=== PATIENT | female | born 1940 | race Caucasian/White ===

== ENCOUNTER 2023-03-26 07:58 | Outpatient (REF) | payer MEDICARE, SELFPAY ==
[2023-03-26 08:46] LABS: Basophils Absolute Auto 0.1 10^3/uL (0.0-0.1); Basophils Percent Auto 0.6 % (0.2-2.0); Eosinophils Absolute Auto 0.2 10^3/uL (0.0-0.7); Eosinophils Percent Auto 2.8 % (0.9-7.0); Hemoglobin 13.4 g/dL (12.0-16.0); Immature Granulocytes Abs Auto 0.04 10^3/uL (0.00-0.03); Immature Granulocytes Pct Auto 0.5 % (0.0-0.5); Lymphocytes Absolute Auto 1.2 10^3/uL (1.2-3.8); Lymphocytes Percent Auto 14.7 % (20.5-60.0); Mean Corpuscular HGB Conc 32.7 g/dL (29.9-35.2); Mean Corpuscular Volume 94.9 fL (81.0-99.0); Mean Platelet Volume 9.8 fL (9.5-13.5); Monocytes Absolute Auto 0.9 10^3/uL (0.3-0.8); Monocytes Percent Auto 10.7 % (1.7-12.0); Neutrophils Absolute Auto 5.8 10^3/uL (1.4-6.5); Neutrophils Percent Auto 70.7 % (43.0-75.0); Platelet Count 284 10^3/uL (150-450); Red Blood Count 4.32 10^6/uL (4.20-5.40); Red Cell Distribution Width 12.2 % (11.0-15.0); White Blood Count 8.2 10^3/uL (4.0-11.0)
[2023-03-26 09:16] LABS: Anion Gap 12.8; BUN Creatinine Ratio 11.7; Calcium 9.3 mg/dL (8.5-10.1); Carbon Dioxide 26.1 mmol/L (21.0-32.0); Chloride 104 mmol/L (98-107); Estimated GFR (African America >60 (>=60); Estimated GFR (Non-African Ame 57 (>=60); Glucose 82 mg/dL (74-106); Potassium 3.9 mmol/L (3.5-5.1); Sodium 139 mmol/L (136-145)
== END 2023-03-26 07:59 | disposition home or self-care (01) ==
LOC: LAB 07:58
PROVIDERS: PCP Internal Medicine; Visit Provider Internal Medicine
DX: I10 Essential (primary) hypertension (principal); F03.90 Unspecified dementia, unspecified severity, without behavioral disturbance, psychotic disturbance, mood disturbance, and anxiety
CPT/HCPCS: 36415; 80048; 85025

== ENCOUNTER 2023-07-30 19:12 | Inpatient (IN) | payer MEDICARE, OTHER, SELFPAY ==
[2023-07-30] VITALS (18 sets, daily range): BP systolic 140–182; BP diastolic 73–100; PULSE 75–92; RESP 16–99; TEMP 36.4–36.5; O2SAT 3–98; BMI 26.6; BMI 28.0
--- NOTE | 2023-07-30 19:23 | CT_ITS ---
The [address] [address] Patient Name: REYNALDO OLIVA MRN: [id number] date: 1940 Sex: F Assigned Patient Location: ER Current Patient Location: ER Accession/Order Number: [id number] Exam Date: 07/30/2023 20:05 Report Date: 07/30/2023 20:23 At the request of: CLAUDIA SOLIS Procedure: CT head/brain wo con EXAMINATION: CT head/brain wo con HISTORY: fall, head injury - TECHNIQUE: CT head without contrast. All CT scans at this facility use dose modulation, iterative reconstruction, and/or weight based dosing when appropriate to reduce radiation dose to as low as reasonably achievable. COMPARISON: CT head 09/18/2021 RESULT: HEAD: Sequelae of chronic microvascular ischemic disease. There is mild to moderate global parenchymal volume loss with compensatory dilatation of the lateral and third ventricles. No midline shift, extra-axial fluid collection or intracranial hemorrhage. Extra-axial posterior right parafalcine mass measuring 1.8 x 1.5 x 1.9 cm favoring a meningioma. Intracranial vascular calcifications are noted. Mastoids and middle ears are clear. The paranasal sinuses are clear. Orbits are intact. Status post bilateral lens replacements. Calvarium, skull base and osseous structures of the imaged face are intact. Scalp soft tissues are preserved. CT/CT head/brain wo con IMPRESSION: No acute intracranial process. Sequelae of chronic microvascular ischemic disease. Right posterior parafalcine extra-axial mass favoring a meningioma similar to prior. Electronically authenticated by: SONIA MACIAS Date: 07/30/2023 20:23
--- NOTE | 2023-07-30 19:23 | CT_ITS ---
The [address] [address] Patient Name: REYNALDO OLIVA MRN: [id number] date: 1940 Sex: F Assigned Patient Location: ER Current Patient Location: ER Accession/Order Number: [id number] Exam Date: 07/30/2023 20:05 Report Date: 07/30/2023 20:30 At the request of: CLAUDIA SOLIS Procedure: CT cervical spine wo con EXAM: CT cervical spine wo con HISTORY: fall, head injury COMPARISON: CT 09/18/2021 TECHNIQUE: CT cervical spine noncontrast. Axial scans with reformatted coronal and sagittal images. FINDINGS: Negative for fracture. No subluxation seen. Degenerative disc disease most prominent disc narrowing C4-5 with small osteophytes and posterior disc osteophyte complex unchanged.. Bony foraminal stenosis most prominent right C4-5 unchanged. Mild degenerative changes at other levels.. Prevertebral soft tissues unremarkable. Lung apices and upper mediastinum unremarkable. CT/CT cervical spine wo con IMPRESSION: Negative for fracture or subluxation. Degenerative disc and facet joint disease stable. Electronically authenticated by: TANISHA RIDER Date: 07/30/2023 20:30
--- NOTE | 2023-07-30 19:23 | ECG_ITS ---
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
--- NOTE | 2023-07-30 19:23 | XR_ITS ---
The [address] [address] Patient Name: REYNALDO OLIVA MRN: [id number] date: 1940 Sex: F Assigned Patient Location: ER Current Patient Location: ER Accession/Order Number: [id number] Exam Date: 07/30/2023 20:05 Report Date: 07/30/2023 20:33 At the request of: CLAUDIA SOLIS Procedure: XR hip RT 2V w/ pelvis EXAM: XR hip RT 2V w/ pelvis HISTORY: fall, right hip injury COMPARISON: None. TECHNIQUE: AP pelvis, AP shoot through lateral right hip. FINDINGS: Subcapital fracture right hip with cephalad displacement of the shaft and varus deformity. No adjacent lytic or blastic bone lesion. Hip joint space preserved. No other pelvic fracture seen. No visible left hip fracture. Nonspecific soft tissues without bowel distention. Bladder appears prominent. Degenerative changes at the symphysis. XR/XR hip RT 2V w/ pelvis IMPRESSION: Subcapital fracture right hip. No other pelvic fracture seen. Electronically authenticated by: TANISHA RIDER Date: 07/30/2023 20:33
--- NOTE | 2023-07-30 19:26 | ED.GENADUL1 ---
HPI - General Adult General Chief complaint: Extremity Injury, Lower Stated complaint: FALL-HIP/SHOULDER PAIN Time Seen by Provider: 07/30/23 19:19 Source: patient Mode of arrival: ambulance History of Present Illness HPI narrative: Patient had an unwitnessed fall at the assisted living facility at [facility] about 30 minutes prior to arrival. Nurses reported that the patient fell to the right side and was complaining of pain in the right shoulder and right hip. Uncertain about head injury or LOC. Patient has dementia and is a limited historian. She complains of pain in the right hip, right shoulder and back of the head. unable to give any more details. he does not live with her and was not there when she fell. Related Data Home Medications Medication Instructions Recorded Confirmed escitalopram oxalate 5 mg tablet 5 mg PO DAILY 07/30/23 07/30/23 losartan 25 mg tablet 25 mg PO DAILY 07/30/23 07/30/23 memantine 10 mg tablet 10 mg PO BID 07/30/23 07/30/23 mirtazapine 30 mg tablet 30 mg PO QPM 07/30/23 07/30/23 omeprazole 20 mg capsule,delayed 20 mg PO BID 07/30/23 07/30/23 release rivastigmine tartrate 3 mg capsule 3 mg PO BID 07/30/23 07/30/23 Allergies Allergy/AdvReac Type Severity Reaction Status Date / Time No Known Drug Allergies Allergy Verified 07/30/23 19:23 Exam Narrative Exam Narrative: Nurses note and vital signs reviewed and patient is not hypoxic. afebrile General: The patient appears well and in no apparent distress. Patient is resting comfortably on cart. GCS = 15. Skin: Warm, dry, no pallor noted. Head: Tenderness at the base of the scalp. Remainder of the head and face are normocephalic, atraumatic Neck: Supple, trachea mid-line, no tenderness, no lymphadenopathy. Full ROM and no cervical spinal tenderness. The patient has no step-offs or crepitus noted Eyes: PERRLA, EOMI ENT: TM's clear, no hemotympanum detected, no blood in posterior oropharynx Cardiovascular: Regular Rate and Rhythm Respiratory: Patient is in no distress, no accessory muscle use, lungs are clear to auscultation, no wheezing, rales or rhonchi Chest Wall: no tenderness, no flail chest, contusion, abrasion, or signs of trauma. Back: Back has no evidence of trauma, including contusion, abrasion, swelling or ecchymosis. The patient had no evidence of step-offs or creptitus noted. No tenderness to palpation. Negative straight leg raise bilaterally. Musculoskeletal: Tenderness throughout the right hip with pain with right hip ROM. No right thigh, knee, lower leg, ankle or foot tenderness. No right shoulder tenderness to palpation and she has full range of active and passive motion. no right UE tenderness, no right UE swelling. Pulses at femoral, DP, PT, and popiteal were 2+ bilaterally. Moves 3 of four extremities in all modalities with 5/5 strength - unable to move right hip. GI: Normal bowel sounds, no tenderness to palpation, no masses appreciated. No rebound, guarding, or rigidity noted. Neurological: awake, alert and oriented to name. normal equal machinist brake strength, normal finger to nose, normal speech, no truncal ataxia, normal motor, normal sensory. Psychiatric: Cooperative Constitutional Vital Signs, click to edit/add: Last Vital Signs Temp 97.6 F 07/30/23 19:16 Pulse 81 07/30/23 19:40 Resp 24 07/30/23 19:40 BP 151/87 H 07/30/23 19:38 Pulse Ox 95 07/30/23 19:30 O2 Del Method Room Air 07/30/23 19:16 Course Vital Signs Vital signs: Vital Signs Temperature 97.6 F 07/30/23 19:16 Pulse Rate 87 07/30/23 19:16 Respiratory Rate 18 07/30/23 19:16 Blood Pressure 182/100 H 07/30/23 19:16 Pulse Oximetry 95 07/30/23 19:16 Oxygen Delivery Method Room Air 07/30/23 19:16 Temperature 97.6 F 07/30/23 19:16 Pulse Rate 81 07/30/23 19:40 Respiratory Rate 24 07/30/23 19:40 Blood Pressure 151/87 H 07/30/23 19:38 Pulse Oximetry 95 07/30/23 19:30 Oxygen Delivery Method Room Air 07/30/23 19:16 Medical Decision Making MDM Narrative Medical decision making narrative: Patient brought in by EMS after unwitnessed fall at the [facility]. Patient sent for CT scans of the head and cervical spine as well as x-rays of the right hip and pelvis. EKG obtained and blood drawn and sent for testing. She was given IV Zofran and given Dilaudid for pain. Evaluation reveals subcapital fracture of the right hip. I called Dr. Donahue and spoke with him about this patient's case and at his request sent him images of the radiographs indicating right hip fracture. The remainder of the patient's imaging was unremarkable. EKG and lab results are noted below. Call placed to the on-call telehospitalist to discuss admission with plan for surgical intervention tomorrow. Patient admitted to [facility], inpatient. Lab Data Lab results reviewed: Yes I reviewed the patient's lab results Labs: Lab Results 07/30/23 Range/Units 20:02 WBC 13.4 H (4.0-11.0) 10^3/uL RBC 4.38 (4.20-5.40) 10^6/uL Hgb 13.9 (12.0-16.0) g/dL Hct 42.2 (36.0-48.0) % MCV 96.3 (81.0-99.0) fL MCH 31.7 (26.7-34.0) pg MCHC 32.9 (29.9-35.2) g/dL RDW 11.8 (11.0-15.0) % Plt Count 240 (150-450) 10^3/uL MPV 8.8 L (9.5-13.5) fL Neut % (Auto) 79.6 H (43.0-75.0) % Lymph % (Auto) 11.5 L (20.5-60.0) % [place] % (Auto) 6.1 (1.7-12.0) % Eos % (Auto) 1.3 (0.9-7.0) % Baso % (Auto) 0.4 (0.2-2.0) % Neut # (Auto) 10.7 H (1.4-6.5) 10^3/uL Lymph # (Auto) 1.5 (1.2-3.8) 10^3/uL [place] # (Auto) 0.8 (0.3-0.8) 10^3/uL Eos # (Auto) 0.2 (0.0-0.7) 10^3/uL Baso # (Auto) 0.1 (0.0-0.1) 10^3/uL Abs Immat Gran (auto) 0.15 H (0.00-0.03) 10^3/uL Imm/Tot Granulo (auto) 1.1 H (0.0-0.5) % PT 10.3 (9.0-11.6) sec INR 0.97 APTT 27.8 (22.3-36.2) sec Sodium 137 (136-145) mmol/L Potassium 4.0 (3.5-5.1) mmol/L Chloride 102 (98-107) mmol/L Carbon Dioxide 28.4 (21.0-32.0) mmol/L Anion Gap 10.6 BUN 12.0 (7.0-18.0) mg/dL Creatinine 1.03 H (0.55-1.02) mg/dL Est GFR ( Amer) >60 (>=60) Est GFR (Non-Af Amer) 51 L (>=60) BUN/Creatinine Ratio 11.7 Glucose 104 (74-106) mg/dL Calcium 9.0 (8.5-10.1) mg/dL Imaging Data ct head & cspine, R hip XR, CXR: Radiologist's impression: ITS Impressions Cervical Spine CT 07/30/23 19:23 IMPRESSION: Negative for fracture or subluxation. Degenerative disc and facet joint disease stable. Electronically authenticated by: TANISHA RIDER Date: 07/30/2023 20:[address] 07/30/23 19:23 IMPRESSION: No acute intracranial process. Sequelae of chronic microvascular ischemic disease. Right posterior parafalcine extra-axial mass favoring a meningioma similar to prior. Electronically authenticated by: SONIA MACIAS Date: 07/30/2023 20:23 Hip/Pelvis X-Ray 07/30/23 19:23 IMPRESSION: Subcapital fracture right hip. No other pelvic fracture seen. Electronically authenticated by: TANISHA RIDER Date: 07/30/2023 20:33 ECG Data Attestation: I personally reviewed and interpreted this ECG as follows: Interpretation: EKG interpretation: Emergency Department physician interpretation. Atrial fibrillation at 60bpm. Normal axis, normal intervals. non specific T wave changes. no ST segment elevation or depression. Discharge Plan Discharge Chief Complaint: Extremity Injury, Lower Clinical Impression: Subcapital fracture of right hip Patient Disposition: Admitted As Inpatient Time of Disposition Decision: 21:02 Prescriptions / Home Meds: No Action escitalopram oxalate 5 mg tablet 5 mg PO DAILY memantine 10 mg tablet 10 mg PO BID losartan 25 mg tablet 25 mg PO DAILY mirtazapine 30 mg tablet 30 mg PO QPM omeprazole 20 mg capsule,delayed release(DR/EC) 20 mg PO BID rivastigmine tartrate 3 mg capsule 3 mg PO BID Referrals: Everardo Salmon DO [Primary Care Provider] - 1 week
[2023-07-30] MEDS: ONDANSETRON PF 4 MG/2 ML VIAL IV (19:44)
[2023-07-30] MEDS: HYDROMORPHONE HCL 0.5 MG/0.5 ML SYRINGE IV ×2 (19:44→21:39)
[2023-07-30 20:09] LABS: Basophils Absolute Auto 0.1 10^3/uL (0.0-0.1); Basophils Percent Auto 0.4 % (0.2-2.0); Eosinophils Absolute Auto 0.2 10^3/uL (0.0-0.7); Eosinophils Percent Auto 1.3 % (0.9-7.0); Hematocrit 42.2 % (36.0-48.0); Hemoglobin 13.9 g/dL (12.0-16.0); Immature Granulocytes Abs Auto 0.15 10^3/uL (0.00-0.03); Immature Granulocytes Pct Auto 1.1 % (0.0-0.5); Lymphocytes Absolute Auto 1.5 10^3/uL (1.2-3.8); Lymphocytes Percent Auto 11.5 % (20.5-60.0); Mean Corpuscular HGB Conc 32.9 g/dL (29.9-35.2); Mean Corpuscular Hemoglobin 31.7 pg (26.7-34.0); Mean Corpuscular Volume 96.3 fL (81.0-99.0); Mean Platelet Volume 8.8 fL (9.5-13.5); Monocytes Absolute Auto 0.8 10^3/uL (0.3-0.8); Monocytes Percent Auto 6.1 % (1.7-12.0); Neutrophils Absolute Auto 10.7 10^3/uL (1.4-6.5); Neutrophils Percent Auto 79.6 % (43.0-75.0); Platelet Count 240 10^3/uL (150-450); Red Blood Count 4.38 10^6/uL (4.20-5.40); Red Cell Distribution Width 11.8 % (11.0-15.0); White Blood Count 13.4 10^3/uL (4.0-11.0)
[2023-07-30 20:21] LABS: Anion Gap 10.6; BUN Creatinine Ratio 11.7; Carbon Dioxide 28.4 mmol/L (21.0-32.0); Chloride 102 mmol/L (98-107); Estimated GFR (African America >60 (>=60); Estimated GFR (Non-African Ame 51 (>=60); Glucose 104 mg/dL (74-106); Sodium 137 mmol/L (136-145)
[2023-07-30 20:26] LABS: INR 0.97; Prothrombin Time 10.3 sec (9.0-11.6)
[2023-07-30 20:30] LABS: Partial Thromboplastin Time 27.8 sec (22.3-36.2)
--- NOTE | 2023-07-30 20:55 | XR_ITS ---
The [address] [address] Patient Name: REYNALDO OLIVA MRN: [id number] date: 1940 Sex: F Assigned Patient Location: ED.MAIN Current Patient Location: ER Accession/Order Number: [id number] Exam Date: 07/30/2023 21:00 Report Date: 07/30/2023 21:26 At the request of: CLAUDIA SOLIS Procedure: XR chest 1V EXAM: XR chest 1V HISTORY: right hip fracture, surgical prep COMPARISON: 01/20/2022 and earlier. TECHNIQUE: AP supine chest x-ray. FINDINGS: Poor inspiration with prominent lung markings but no consolidation or lung contusion or edema. Cardiomediastinal contour is accentuated by magnification position. No pleural effusion or pneumothorax. No displaced fracture. XR/XR chest 1V IMPRESSION: Negative supine chest x-ray, no acute findings. Poor inspiration. Electronically authenticated by: TANISHA RIDER Date: 07/30/2023 21:26
--- NOTE | 2023-07-30 21:26 | PC.NURSE ---
Pt desatting after pain medication administration. 2 Liters nasal cannula applied to pt and pulse ox up to 96%
[2023-07-30 22:09] LABS: Alanine Aminotransferase 29 U/L (14-59); Albumin Level 3.4 g/dL (3.4-5.0); Alkaline Phosphatase 109 U/L (46-116); Aspartate Amino Transferase 20 U/L (15-37); Bilirubin Total 0.3 mg/dL (0.2-1.0); Total Protein 7.4 g/dL (6.4-8.2)
[2023-07-30] MEDS: 0.9 % SODIUM CHLORIDE 1,000 ML 100 ML IV (22:44)
[2023-07-31] VITALS (53 sets, daily range): BP systolic 77–145; BP diastolic 30–102; PULSE 88–99; RESP 16–27; TEMP 36.3–37.7; O2SAT 65–99
--- NOTE | 2023-07-31 | XR_ITS ---
The [address] [address] Patient Name: REYNALDO OLIVA MRN: [id number] date: 1940 Sex: F Assigned Patient Location: MS Current Patient Location: MS Accession/Order Number: [id number] Exam Date: 07/31/2023 17:35 Report Date: 07/31/2023 18:57 At the request of: DANA AZUL Procedure: XR hip RT 1V EXAM: XR hip RT 1V HISTORY: Right hip arthroplasty COMPARISON: Pelvis and right hip x-ray 07/30/2023. TECHNIQUE: Portable AP x-ray right hip. FINDINGS: Right hip replacement hardware appears intact. No fracture or dislocation. Cement around the femoral component. Soft tissue gas consistent with surgery. XR/XR hip RT 1V IMPRESSION: Postop hip replacement with intact hardware. No fracture or dislocation. Electronically authenticated by: TANISHA RIDER Date: 07/31/2023 18:57
[2023-07-31 04:34] LABS: Basophils Absolute Auto 0.1 10^3/uL (0.0-0.1); Basophils Percent Auto 0.3 % (0.2-2.0); Eosinophils Absolute Auto 0.1 10^3/uL (0.0-0.7); Eosinophils Percent Auto 0.6 % (0.9-7.0); Hemoglobin 14.2 g/dL (12.0-16.0); Immature Granulocytes Abs Auto 0.07 10^3/uL (0.00-0.03); Immature Granulocytes Pct Auto 0.4 % (0.0-0.5); Lymphocytes Absolute Auto 1.2 10^3/uL (1.2-3.8); Lymphocytes Percent Auto 6.5 % (20.5-60.0); Mean Corpuscular Hemoglobin 31.6 pg (26.7-34.0); Mean Corpuscular Volume 95.6 fL (81.0-99.0); Mean Platelet Volume 9.2 fL (9.5-13.5); Monocytes Percent Auto 5.4 % (1.7-12.0); Neutrophils Absolute Auto 15.5 10^3/uL (1.4-6.5); Neutrophils Percent Auto 86.8 % (43.0-75.0); Platelet Count 247 10^3/uL (150-450); Red Cell Distribution Width 11.8 % (11.0-15.0); White Blood Count 17.9 10^3/uL (4.0-11.0)
[2023-07-31 05:03] LABS: INR 0.97; Prothrombin Time 10.3 sec (9.0-11.6)
[2023-07-31 05:16] LABS: Alanine Aminotransferase 28 U/L (14-59); Albumin Globulin Ratio 0.8; Albumin Level 3.2 g/dL (3.4-5.0); Alkaline Phosphatase 104 U/L (46-116); Aspartate Amino Transferase 23 U/L (15-37); BUN Creatinine Ratio 10.1; Bilirubin Total 0.6 mg/dL (0.2-1.0); Calcium 8.5 mg/dL (8.5-10.1); Carbon Dioxide 25.3 mmol/L (21.0-32.0); Chloride 103 mmol/L (98-107); Estimated GFR (African America >60 (>=60); Estimated GFR (Non-African Ame 54 (>=60); Globulin 3.9 g/dL; Glucose 112 mg/dL (74-106); Potassium 4.3 mmol/L (3.5-5.1); Sodium 136 mmol/L (136-145); Total Protein 7.1 g/dL (6.4-8.2)
--- NOTE | 2023-07-31 06:44 | CA_ITS ---
Patient Name: REYNALDO OLIVA MR#: [id number] : 1940 Exam Date: 07/31/2023 Ordering Doctor: DANA AZUL . ECHOCARDIOGRAM REPORT PROCEDURE: CA ECHO LIMITED INDICATIONS: Pre-surgery Ejection Fraction, hypertension COMPARISON: None. DESCRIPTION: Limited ECHOCARDIOGRAM Real-time transthoracic echocardiography with 2D and M-mode performed. QUALITY: Technical quality was adequate. 62 , 153#, BSA 1.71 m2 Limited echocardiogram per physician order. LEFT VENTRICLE: Small chamber size. Normal left ventricular wall thickness. LV EF: Global left ventricular systolic function is hyperdynamic; visually estimated ejection fraction 65 to 70%. No obvious wall motion abnormalities. ATRIAL SEPTUM: Inadequately seen. LEFT ATRIUM: Normal chamber size. RIGHT ATRIUM: Normal chamber size. RIGHT VENTRICLE: Normal chamber size. Normal systolic function. TRICUSPID VALVE: Normal mobility and thickness. MITRAL VALVE: Normal mobility and thickness. AORTIC VALVE: Normal trileaflet appearance. No visible sclerosis. Normal leaflet mobility. AORTIC ROOT: Normal diameter and appearance. PULMONIC VALVE: Not well visualized. PERICARDIUM: Anterior free space; trivial effusion versus fat pad. IVC: Collapses with inspirations. CONCLUSION: 1. Global left ventricular systolic function is hyperdynamic; visually estimated ejection fraction 65 to 70% 2. Normal right ventricular size and systolic function 3. Anterior free space; trivial effusion versus fat pad A limited echocardiogram was performed Adult Echocardiography Procedure Report Left Ventricle LVEDD (3.7 - 5.6 cm): 3.20 cm LVESD (2.2 - 4.0 cm): 2.36 cm LVIVS thickness (0.6 - 1.2 cm): 0.93 cm LVPW thickness (0.5 - 1.0 cm): 1.08 cm LVOT Diameter 2.33 cm Left Atrium LA Volume Index (2D A2C): 17.94 ml/m2 Left Atrium Systolic Dimension: 2.90 cm Mitral Valve Right Ventricle Aorta AO Root Diam: 3.14 cm Ascending Ao Diam: 2.59 cm Aortic Valve Tricuspid Valve Pulmonic Valve Right Atrium Right Atrium Systolic Pressure: 15.57 ml, 15.57 ml Dictated by: George Carlson M.D. on 07/31/2023 at 12:00 Approved by: George Carlson M.D. on 07/31/2023 at 12:03
[2023-07-31] MEDS: MORPHINE SULFATE 2 MG/ML SYRINGE 1 MG IV (07:41)
--- NOTE | 2023-07-31 08:16 | ECG_ITS ---
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
--- NOTE | 2023-07-31 08:48 | P.HP_ITS ---
H&P: HPI History of Present Illness Chief complaint: FALL-HIP/SHOULDER PAIN, RT Hip Fracture Narrative: patient is a 82-year-old female with past medical history of progressive dementia,hypertension, GERD who presented to the Emergency Room yesterday evening after a fall at the assisted living facility. describes that she tripped over her feet and landed on the right side of her body striking her hip. There are videos surveillance in the assisted living facility. There was no known head trauma or loss of consciousness. She was also complaining of some right shoulder pain. Patient does not take any blood thinners on a regular basis. Other than the hypertension no known cardiac disease.in the emergency department workup revealed subcapital fracture of the right hip, no acute findings on chest x-ray, no acute bleeds or ischemic disease noted on CT and an incidental meningioma that is unchanged.also negative C-spine CT for fracture. At the time of admission exam patient is laying comfortably in bed. Patient's and daughter are present at bedside to give history. As stated above patient does have advanced dementia and is a not able to give any history. Review of Systems ROS Status of ROS unobtainable due to mental status [facility] Medical History (Updated 07/31/23 @ 13:18 by Syeda Malloy DO) Do not resuscitate status ?Z66 - Do not resuscitate (ICD-10) Lewy body dementia ?G31.83 - Neurocognitive disorder with Lewy bodies (ICD-10) ?F02.80 - Dementia in other diseases classified elsewhere, unspecified severity, without behavioral disturbance, psychotic disturbance, mood disturbance, and anxiety (ICD-10) Decreased cardiac ejection fraction ?R93.1 - Abnormal findings on diagnostic imaging of heart and coronary circulation (ICD-10) Acid reflux ?K21.9 - Gastro-esophageal reflux disease without esophagitis (ICD-10) Hiatal hernia ?K44.9 - Diaphragmatic hernia without obstruction or gangrene (ICD-10) Hypertension ?I10 - Essential (primary) hypertension (ICD-10) Arthritis ?M19.90 - Unspecified osteoarthritis, unspecified site (ICD-10) Cataract ?H26.9 - Unspecified cataract (ICD-10) Dementia ?F03.90 - Unspecified dementia, unspecified severity, without behavioral disturbance, psychotic disturbance, mood disturbance, and anxiety (ICD-10) Surgical History Hx of cholecystectomy ?Z90.49 - Acquired absence of other specified parts of digestive tract (ICD- 10) H/O: hysterectomy ?Z90.710 - Acquired absence of both cervix and uterus (ICD-10) Meds Home Medications and Allergies Home Medications Medication Instructions Recorded Confirmed Type escitalopram oxalate 5 mg tablet 5 mg PO DAILY 07/30/23 07/30/23 History losartan 25 mg tablet 25 mg PO DAILY 07/30/23 07/30/23 History memantine 10 mg tablet 10 mg PO BID 07/30/23 07/30/23 History mirtazapine 30 mg tablet 30 mg PO QPM 07/30/23 07/30/23 History omeprazole 20 mg capsule,delayed 20 mg PO BID 07/30/23 07/30/23 History release rivastigmine tartrate 3 mg capsule 3 mg PO BID 07/30/23 07/30/23 History Allergies Allergy/AdvReac Type Severity Reaction Status Date / Time No Known Drug Allergies Allergy Verified 07/30/23 19:23 Exam Narrative Exam Narrative: General: Patient is alert but not oriented to person, place or time Skin: no visible rashes, or ulcers Head: atraumatic, acephalic Ears: normal gross auditory acuity Heart: Normal rate and rhythm, no murmurs/rubs/gallops Lungs: no audible wheezes, crackles and normal breath sounds all lung robles Abdomen: Normal audible bowel sounds, no distension, No palpable masses, no organomegaly, no rebound/guarding/ or rigidity Musculoskeletal: no swelling bilateral lower extremities Neuro: CN II-X grossly intact Constitutional Vital Signs, click to edit/add: Last Vital Signs Temp 98 F 07/31/23 04:31 Pulse 99 H 07/31/23 04:31 Resp 22 07/31/23 07:45 BP 126/86 07/31/23 04:31 Pulse Ox 92 L 07/31/23 04:49 O2 Del Method Nasal Cannula 07/31/23 04:49 O2 Flow Rate 1 07/31/23 04:49 Results Labs Labs: Short CBC 07/30/23 07/31/23 Range/Units 20:02 03:59 WBC 13.4 H 17.9 H (4.0-11.0) 10^3/uL Hgb 13.9 14.2 (12.0-16.0) g/dL Hct 42.2 43.0 (36.0-48.0) % Plt Count 240 247 (150-450) 10^3/uL BMP 07/30/23 07/31/23 20:02 03:59 Sodium 137 136 Potassium 4.0 4.3 Chloride 102 103 Carbon Dioxide 28.4 25.3 BUN 12.0 10.0 Creatinine 1.03 H 0.99 Glucose 104 112 H Calcium 9.0 8.5 Liver Function 07/30/23 07/31/23 Range/Units 20:02 03:59 Total Bilirubin 0.3 0.6 (0.2-1.0) mg/dL AST 20 23 (15-37) U/L ALT 29 28 (14-59) U/L Alkaline Phosphatase 109 104 (46-116) U/L Albumin 3.4 3.2 L (3.4-5.0) g/dL Assessment and Plan Assessment and Plan (1) Subcapital fracture of right hip: Assessment and Plan: orthopedic surgery was called so that. Echocardiogram limited pending. Cardiology consult for presurgical workup pending. EKGs ?2. Patient is not on any blood thinners and coagulation labs were normal. Normal hemoglobin and hematocrit. Patient is currently nothing by mouth. Continue to provide pain medication with morphine 2 mg IV every 4 hours as needed. Qualifiers: Encounter type: initial encounter Fracture type: closed Qualified Code(s): S72.011A - Unspecified intracapsular fracture of right femur, initial encounter for closed fracture (2) Lewy body dementia: Assessment and Plan: we'll continue home medications post surgical. Qualifiers: Dementia severity: severe Dementia behavioral or psychological symptom: unspecified whether behavioral, psychotic, or mood disturbance or anxiety Qualified Code(s): G31.83 - Neurocognitive disorder with Lewy bodies; F02.C0 - Dementia in other diseases classified elsewhere, severe, without behavioral disturbance, psychotic disturbance, mood disturbance, and anxiety (3) Hypertension: Assessment and Plan: we'll continue home medications after surgery. Qualifiers: Hypertension type: primary hypertension Qualified Code(s): I10 - Essential (primary) hypertension Plan patient is a DNR CC Hopeful surgery today pending cardiac clearance. Urinary Catheter Management Urinary Catheter Management 2-way Urethral: Cath placed during this visit: yes Urethral indwelling: Yes Reason for continuing: surgical procedure Insertion date: 07/30/23 Insertion time: 21:27
[2023-07-31] MEDS: 0.9 % SODIUM CHLORIDE 1,000 ML 100 ML IV ×2 (09:17→20:25)
[2023-07-31] MEDS: MORPHINE SULFATE 2 MG/ML SYRINGE IV (11:32)
--- NOTE | 2023-07-31 14:35 | SWNOTE1 ---
Pt is from [facility]. Plan is for surgery today.
--- NOTE | 2023-07-31 14:36 | PM.ORCN ---
History of Present Illness HPI Consult date: 07/31/23 Consult reason: fracture Chief complaint: FALL-HIP/SHOULDER PAIN, RT Hip Fracture Narrative: Patient is a 82-year-old history of dementia. She is unable to provide any history which was obtained from the chart and the family. Patient had a fall yesterday at the nursing facility landing on her right side with pain and inability to bear weight. She presented to the emergency room where x-rays revealed a right hip femoral neck fracture that was displaced. Patient has been admitted for operative treatment of her injury. Patient reports at baseline she is a household ambulator. Review of Systems ROS Status of ROS 10 or more systems reviewed and unremarkable except as noted in history and below [facility] Medical History (Updated 07/31/23 @ 13:18 by Syeda Malloy DO) Do not resuscitate status ?Z66 - Do not resuscitate (ICD-10) Lewy body dementia ?G31.83 - Neurocognitive disorder with Lewy bodies (ICD-10) ?F02.80 - Dementia in other diseases classified elsewhere, unspecified severity, without behavioral disturbance, psychotic disturbance, mood disturbance, and anxiety (ICD-10) Decreased cardiac ejection fraction ?R93.1 - Abnormal findings on diagnostic imaging of heart and coronary circulation (ICD-10) Acid reflux ?K21.9 - Gastro-esophageal reflux disease without esophagitis (ICD-10) Hiatal hernia ?K44.9 - Diaphragmatic hernia without obstruction or gangrene (ICD-10) Hypertension ?I10 - Essential (primary) hypertension (ICD-10) Arthritis ?M19.90 - Unspecified osteoarthritis, unspecified site (ICD-10) Cataract ?H26.9 - Unspecified cataract (ICD-10) Dementia ?F03.90 - Unspecified dementia, unspecified severity, without behavioral disturbance, psychotic disturbance, mood disturbance, and anxiety (ICD-10) Surgical History Hx of cholecystectomy ?Z90.49 - Acquired absence of other specified parts of digestive tract (ICD-10) H/O: hysterectomy ?Z90.710 - Acquired absence of both cervix and uterus (ICD-10) Meds Home Medications and Allergies Home Medications Medication Instructions Recorded Confirmed Type escitalopram oxalate 5 mg tablet 5 mg PO DAILY 07/30/23 07/30/23 History losartan 25 mg tablet 25 mg PO DAILY 07/30/23 07/30/23 History memantine 10 mg tablet 10 mg PO BID 07/30/23 07/30/23 History mirtazapine 30 mg tablet 30 mg PO QPM 07/30/23 07/30/23 History omeprazole 20 mg capsule,delayed 20 mg PO BID 07/30/23 07/30/23 History release rivastigmine tartrate 3 mg capsule 3 mg PO BID 07/30/23 07/30/23 History Allergies Allergy/AdvReac Type Severity Reaction Status Date / Time No Known Drug Allergies Allergy Verified 07/30/23 19:23 Exam Narrative Exam Narrative: Exam today her right leg is shortened and rotated. Pain with any rotation to the right hip. No knee or ankle tenderness. Good capillary refill. No right knee or right ankle tenderness. Left lower extremity is nontender to palpation. Bilateral upper extremities are nontender to palpation. Constitutional Vital Signs, click to edit/add: Last Vital Signs Temp 99.8 F 07/31/23 11:00 Pulse 99 H 07/31/23 04:31 Resp 18 07/31/23 11:00 BP 126/86 07/31/23 04:31 Pulse Ox 92 L 07/31/23 04:49 O2 Del Method Nasal Cannula 07/31/23 04:49 O2 Flow Rate 1 07/31/23 04:49 Results Labs Labs: Abnormal lab results 07/30/23 07/31/23 Range/Units 20:02 03:59 WBC 13.4 H 17.9 H (4.0-11.0) 10^3/uL MPV 8.8 L 9.2 L (9.5-13.5) fL Neut % (Auto) 79.6 H 86.8 H (43.0-75.0) % Lymph % (Auto) 11.5 L 6.5 L (20.5-60.0) % Eos % (Auto) 0.6 L (0.9-7.0) % Neut # (Auto) 10.7 H 15.5 H (1.4-6.5) 10^3/uL Nobles # (Auto) 1.0 H (0.3-0.8) 10^3/uL Abs Immat Gran (auto) 0.15 H 0.07 H (0.00-0.03) 10^3/uL Imm/Tot Granulo (auto) 1.1 H (0.0-0.5) % Creatinine 1.03 H (0.55-1.02) mg/dL Est GFR (Non-Af Amer) 51 L 54 L (>=60) Glucose 112 H (74-106) mg/dL Albumin 3.2 L (3.4-5.0) g/dL H & H 07/30/23 07/31/23 Range/Units 20:02 03:59 Hgb 13.9 14.2 (12.0-16.0) g/dL Hct 42.2 43.0 (36.0-48.0) % Coagulation 07/30/23 07/31/23 Range/Units 20:02 03:59 INR 0.97 0.97 All other labs normal. Diagnostic results Hip x-ray: image reviewed (Distal right femoral neck fracture) Assessment and Plan Assessment and Plan (1) Subcapital fracture of right hip: Qualifiers: Encounter type: initial encounter Fracture type: closed Qualified Code(s): S72.011A - Unspecified intracapsular fracture of right femur, initial encounter for closed fracture (2) Lewy body dementia: Qualifiers: Dementia severity: severe Dementia behavioral or psychological symptom: unspecified whether behavioral, psychotic, or mood disturbance or anxiety Qualified Code(s): G31.83 - Neurocognitive disorder with Lewy bodies; F02.C0 - Dementia in other diseases classified elsewhere, severe, without behavioral disturbance, psychotic disturbance, mood disturbance, and anxiety (3) Hypertension: Qualifiers: Hypertension type: primary hypertension Qualified Code(s): I10 - Essential (primary) hypertension Plan For her right hip displaced femoral neck fracture I recommended to the patient's family a right hip hemiarthroplasty. I have discussed risks of surgery including but not limited to risk of persistent postoperative pain, blood clots as well as additional risks and the informed consent process. They understand these risks and have elected to proceed.
--- NOTE | 2023-07-31 14:47 | PC.NURSE ---
Dr. Brock obtained consent for anesthesia and nerve block from family, as patient is unable to consent for self. Patient was positioned completely supine at this time. Patient has O2 on as she came to PACU with in place.Patient did not require any sedation for the procedure. Dr. Brock used bedside ultrasound to locate nerve on right side. Patient tolerated procedure well. OR team took patient to OR suite when block was complete.
--- NOTE | 2023-07-31 15:15 | SWNOTE1 ---
SW met with family in waiting room. Pt is in surgery. Pt is from [facility]. SW spoke with pt's and 2 daughters. SW let them know pt will not be able to return to [facility] unless she can ambulate. Pt's family voiced understanding. SW spoke with them about the option of her likely needing rehab at nursing facility. SW explained how medicare works in regards to rehab. SW offered to bring a list from medicare.gov with star ratings. Pt's voiced he already knows where he wants her to go. He stated [facility]. SW to send referral to [facility]. With pt having surgery today and SW not having any therapy notes or operative note, it is likely she will not discharge until Thursday if medically stable. No further questions from family at this time. LYUBOV sent physician documentation, labs, med list, diagnostic imaging, vitals, and nursing notes to [facility].
--- NOTE | 2023-07-31 16:41 | P.CACN_ITS ---
History of Present Illness History of Present Illness Consult date: 07/31/23 Requesting physician: Syeda Malloy Consult reason: pre-op evaluation Chief complaint: FALL-HIP/SHOULDER PAIN, RT Hip Fracture Narrative: This is an 82-year-old woman with history of dementia who is admitted after a mechanical fall with hip fracture. She is planned to undergo surgery. I am consulted for preoperative evaluation prior to the hip surgery. The patient was seen in her room with the family members present including the and daughter. The patient is currently in pain. Her prior history is negative for clear cardiac problems. She was noted on ECG to have irregular rhythm and one of the ECGs was read as atrial fibrillation. However review of the ECG shows that it was sinus rhythm with second-degree AV block type I Wenckebach. Current EKG shows sinus rhythm. She has been hemodynamically stable with mild occasional elevation in her blood pressure. In talking to the family members and the patient, there appears to have been no symptoms indicative of angina or heart failure prior to this admission. She does have history of hypertension and is currently on losartan 25 mg daily. Review of Systems ROS Status of ROS 10 or more systems reviewed and unremark able except as noted in history and below [facility] Medical History (Updated 07/31/23 @ 16:49 by FAREED MANDUJANO) Do not resuscitate status ?Z66 - Do not resuscitate (ICD-10) Lewy body dementia ?G31.83 - Neurocognitive disorder with Lewy bodies (ICD-10) ?F02.80 - Dementia in other diseases classified elsewhere, unspecified severity, without behavioral disturbance, psychotic disturbance, mood disturbance, and anxiety (ICD-10) Decreased cardiac ejection fraction ?R93.1 - Abnormal findings on diagnostic imaging of heart and coronary circulation (ICD-10) Acid reflux ?K21.9 - Gastro-esophageal reflux disease without esophagitis (ICD-10) Hiatal hernia ?K44.9 - Diaphragmatic hernia without obstruction or gangrene (ICD-10) Hypertension ?I10 - Essential (primary) hypertension (ICD-10) Arthritis ?M19.90 - Unspecified osteoarthritis, unspecified site (ICD-10) Cataract ?H26.9 - Unspecified cataract (ICD-10) Dementia ?F03.90 - Unspecified dementia, unspecified severity, without behavioral disturbance, psychotic disturbance, mood disturbance, and anxiety (ICD-10) Surgical History Hx of cholecystectomy ?Z90.49 - Acquired absence of other specified parts of digestive tract (ICD- 10) H/O: hysterectomy ?Z90.710 - Acquired absence of both cervix and uterus (ICD-10) Meds Home Medications and Allergies Home Medications Medication Instructions Recorded Confirmed Type escitalopram oxalate 5 mg tablet 5 mg PO DAILY 07/30/23 07/30/23 History losartan 25 mg tablet 25 mg PO DAILY 07/30/23 07/30/23 History memantine 10 mg tablet 10 mg PO BID 07/30/23 07/30/23 History mirtazapine 30 mg tablet 30 mg PO QPM 07/30/23 07/30/23 History omeprazole 20 mg capsule,delayed 20 mg PO BID 07/30/23 07/30/23 History release rivastigmine tartrate 3 mg capsule 3 mg PO BID 07/30/23 07/30/23 History Allergies Allergy/AdvReac Type Severity Reaction Status Date / Time No Known Drug Allergies Allergy Verified 07/30/23 19:23 Exam Constitutional Vital Signs, click to edit/add: Last Vital Signs Temp 99.8 F 07/31/23 11:00 Pulse 99 H 07/31/23 04:31 Resp 18 07/31/23 11:00 BP 126/86 07/31/23 04:31 Pulse Ox 93 L 07/31/23 15:05 O2 Del Method Nasal Cannula 07/31/23 15:05 O2 Flow Rate 1 07/31/23 04:49 Common normals: alert General appearance: in distress Orientation/consciousness: Yes awake and Yes lethargic Chest Common normals: inspection of chest normal Respiratory Common normals: normal respiratory effort Auscultation: clear to auscultation bilaterally Cardio Common normals: regular rate, regular rhythm, S1 normal heart sound, S2 normal heart sound and no murmurs GI Common normals: Normal to inspection, nondistended, normoactive bowel sounds present Extremity Common normals: no clubbing, cyanosis or edema Results Labs and Meds Lab results: Cardiac Enzymes 07/30/23 07/31/23 Range/Units 20:02 03:59 AST 20 23 (15-37) U/L Coagulation 07/30/23 07/31/23 Range/Units 20:02 03:59 PT 10.3 10.3 (9.0-11.6) sec APTT 27.8 (22.3-36.2) sec CBC 24 07/31/23 Range/Units 20:02 03:59 WBC 13.4 H 17.9 H (4.0-11.0) 10^3/uL RBC 4.38 4.50 (4.20-5.40) 10^6/uL Hgb 13.9 14.2 (12.0-16.0) g/dL Hct 42.2 43.0 (36.0-48.0) % Plt Count 240 247 (150-450) 10^3/uL Neut # (Auto) 10.7 H 15.5 H (1.4-6.5) 10^3/uL Lymph # (Auto) 1.5 1.2 (1.2-3.8) 10^3/uL Thomas # (Auto) 0.8 1.0 H (0.3-0.8) 10^3/uL Eos # (Auto) 0.2 0.1 (0.0-0.7) 10^3/uL Baso # (Auto) 0.1 0.1 (0.0-0.1) 10^3/uL Comprehensive Metabolic Panel 07/30/23 07/31/23 Range/Units 20:02 03:59 Sodium 137 136 (136-145) mmol/L Potassium 4.0 4.3 (3.5-5.1) mmol/L Chloride 102 103 (98-107) mmol/L Carbon Dioxide 28.4 25.3 (21.0-32.0) mmol/L BUN 12.0 10.0 (7.0-18.0) mg/dL Creatinine 1.03 H 0.99 (0.55-1.02) mg/dL Glucose 104 112 H (74-106) mg/dL Calcium 9.0 8.5 (8.5-10.1) mg/dL AST 20 23 (15-37) U/L ALT 29 28 (14-59) U/L Alkaline Phosphatase 109 104 (46-116) U/L Total Protein 7.4 7.1 (6.4-8.2) g/dL Albumin 3.4 3.2 L (3.4-5.0) g/dL Intake and Output 07/31/23 07/31/23 07/31/23 07:59 15:59 23:59 Intake Total 1000 / 1000 Output Total 650 / 650 Balance -650 / -650 1000 / 1000 Intake: IV 1000 / 1000 0.9 % Sodium Chloride 1,000 ml 1000 / 1000 @ 100 mls/hr IV .Q10H LINDA Rx#: [id number] Output: Urine Amount (Catheter) 650 / 650 2-way Urethral 650 / 650 Imaging and Cardiology Echo: report reviewed (CONCLUSION: 1. Global left ventricular systolic function is hyperdynamic; visually estimated ejection fraction 65 to 70% 2. Normal right ventricular size and systolic function 3. Anterior free space; trivial effusion versus fat pad A limited echocardiogram was performed) EKG Interpretation EKG: sinus rhythm Assessment and Plan Assessment and Plan (1) Subcapital fracture of right hip: Qualifiers: Encounter type: initial encounter Fracture type: closed Qualified Code(s): S72.011A - Unspecified intracapsular fracture of right femur, initial encounter for closed fracture (2) Lewy body dementia: Qualifiers: Dementia severity: severe Dementia behavioral or psychological symptom: unspecified whether behavioral, psychotic, or mood disturbance or anxiety Qualified Code(s): G31.83 - Neurocognitive disorder with Lewy bodies; F02.C0 - Dementia in other diseases classified elsewhere, severe, without behavioral disturbance, psychotic disturbance, mood disturbance, and anxiety (3) Hypertension: Assessment and Plan: Blood pressure reasonably controlled. Occasional elevated numbers likely related to pain of the hip fracture. This is to be monitored as an outpatient. Continue losartan. Qualifiers: Hypertension type: primary hypertension Qualified Code(s): I10 - Essential (primary) hypertension (4) Preop cardiovascular exam: Assessment and Plan: She does not have symptoms of heart failure or angina. Her echocardiogram showed normal ventricular systolic function. Her ECG showed normal sinus rhythm currently. She is hemodynamically stable. She can proceed with hip surgery at low to intermediate cardiac risk. (5) Wenckebach second degree AV block: Assessment and Plan: This is found on ECG. No clear symptoms syncope or dizziness in the past. No need for intervention at this time. Plan She can proceed with surgery as noted above. She can follow-up in cardiology clinic following discharge.
--- NOTE | 2023-07-31 16:58 | PM.ORPRC ---
Procedure Note Date of procedure: 07/31/23 Pre-op diagnosis: Right femoral neck fracture Post-op diagnosis: same as pre-op Procedure: Operation: Right hip hemiarthroplasty Operative procedure: After informed consent was obtained the patient was brought to the operating room where a general anesthetic was administered. Preoperatively the a regional block was placed. The patient was placed in the lateral decubitus position and bony prominences were well-padded. The right hip and leg were prepped and draped in the usual sterile fashion. A 14 cm curvilinear incision was made for a posterior approach to the hip. Hemostasis was achieved with Bovie. Fascia was incised in line with the incision. Short external rotators were incised off the greater trochanter and tagged for later repair. The capsule was incised. Femoral neck fracture was identified and a revision osteotomy was performed utilizing the osteotomy cutting guide and a sagittal saw. Femoral head was removed without difficulty and sized to 44 mm. Box osteotome was used followed by a canal finder, lateralizing reamer and then sequential broaching to 14 mm for the Kristina Advocate system. Ultimately after trialing different neck lengths decision was made to proceed with a 10.5 neck length with a 44 mm Endo head. Trial components were removed. Canal was brushed irrigated and then dried. Cement was prepared in standard fashion. Cement was then introduced after the cement restrictor was placed. Thumb pressurization was used. Final 14 Advocate stem was placed and held in position until the cement had hardened. A 44 mm head with a +10.5 neck taper was then placed tamped into position and the hip was reduced. Hip was placed to range of motion and found to be stable. Wound was irrigated. Capsule was repaired with a #2 FiberWire suture. Short external rotators were repaired through drill holes on the greater trochanter and tied over a bony bridge. She was closed with an Arthrex suture tape. Skin was closed in standard fashion in layers. Maddock for the skin and then a sterile dressing. Hip abduction pillow was placed. Patient was awakened and brought to the recovery room in stable condition. There were no intraoperative or immediate postoperative complications.
[2023-07-31] MEDS: CEFAZOLIN SODIUM/DEXTROSE,ISO 2 GM/50 ML PIGGYBACK IV (19:46)
[2023-08-01] MEDS: CEFAZOLIN SODIUM/DEXTROSE,ISO 2 GM/50 ML PIGGYBACK IV ×2 (02:09→10:32)
[2023-08-01] MEDS: 0.9 % SODIUM CHLORIDE 1,000 ML 100 ML IV ×3 (05:10→21:40)
[2023-08-01 05:17] VITALS: BP 114/70; PULSE 87; RESP 20; TEMP 37.2; O2SAT 96
[2023-08-01 06:05] LABS: Hematocrit 36.7 % (36.0-48.0); Hemoglobin 11.9 g/dL (12.0-16.0); Mean Corpuscular HGB Conc 32.4 g/dL (29.9-35.2); Mean Corpuscular Hemoglobin 31.3 pg (26.7-34.0); Mean Corpuscular Volume 96.6 fL (81.0-99.0); Mean Platelet Volume 9.8 fL (9.5-13.5); Platelet Count 175 10^3/uL (150-450); Red Cell Distribution Width 11.9 % (11.0-15.0)
[2023-08-01 06:24] LABS: Alanine Aminotransferase 17 U/L (14-59); Albumin Globulin Ratio 0.7; Albumin Level 2.4 g/dL (3.4-5.0); Alkaline Phosphatase 90 U/L (46-116); Anion Gap 13.1; Aspartate Amino Transferase 28 U/L (15-37); BUN Creatinine Ratio 11.6; Bilirubin Total 0.6 mg/dL (0.2-1.0); Carbon Dioxide 22.4 mmol/L (21.0-32.0); Chloride 103 mmol/L (98-107); Estimated GFR (African America >60 (>=60); Estimated GFR (Non-African Ame >60 (>=60); Globulin 3.6 g/dL; Glucose 108 mg/dL (74-106); Potassium 4.5 mmol/L (3.5-5.1); Sodium 134 mmol/L (136-145)
[2023-08-01 08:04] LABS: Bilirubin Urine NEGATIVE (NEGATIVE); Blood Urine LARGE (NEGATIVE); Clarity Urine CLEAR (CLEAR); Color Urine YELLOW (YELLOW); Glucose Urine UA NEGATIVE (NEGATIVE); Ketones Urine TRACE mg/dL (NEGATIVE); Leukocyte Esterase Urine NEGATIVE (NEGATIVE); Nitrite Urine NEGATIVE (NEGATIVE); Protein Urine TRACE mg/dL (NEG/TRACE); Specific Gravity Urine 1.025 (1.005-1.025); Urobilinogen Urine 0.2 EU/dL (0.2-1.0)
[2023-08-01 08:19] LABS: Urine Microscopic Indicated YES
[2023-08-01 08:23] LABS: WBC Urine 0-2 #/HPF (NONE SEEN)
[2023-08-01 08:24] LABS: Bacteria Urine SMALL #/HPF (NONE SEEN); Cast Seen? NONE SEEN #/LPF (NONE SEEN); Crystals Seen? None Seen #/HPF (None Seen); Mucus Urine TRACE (NONE SEEN); RBC Urine 20-50 #/HPF (0-2); Squamous Epithelial Cell Urine RARE #/LPF (NONE/RARE); Urine Culture Indicated ALREADY ORDERED
--- NOTE | 2023-08-01 09:55 | XR_ITS ---
The [address] [address] Patient Name: REYNALDO OLIVA MRN: [id number] date: 1940 Sex: F Assigned Patient Location: Current Patient Location: Accession/Order Number: [id number] Exam Date: 08/01/2023 14:15 Report Date: 08/01/2023 15:12 At the request of: WARD SÁNCHEZ Procedure: XR acute abdomen series PROCEDURE: XR acute abdomen series DATE: 08/01/2023 2:15 PM EST COMPARISONS: Chest x-ray from 01/20/2022 and 07/30/2023. AP pelvis and right hip 07/30/2023 CLINICAL INDICATION: 82 years Female Hypoxia. Abdominal pain. FINDINGS: Frontal view the chest is obtained. The diaphragms are elevated consistent with less than optimal inspiratory radiograph. Taking this into account the heart and mediastinum are within normal limits. There is diffuse increased interstitial markings throughout all lung robles probably representing atelectasis related to limited inspiratory radiograph. Some of this could represent interstitial fluid. Less likely some of this could represent inflammatory infiltrate. Abdominal radiographs are limited somewhat by motion artifact and by the portable technique. There is no evidence of free intraperitoneal air. The bowel gas pattern is within normal limits No abnormal calcifications overlie the abdomen. There is bone demineralization. There are scattered lumbar degenerative spondylosis. There is evidence of sacroiliac degenerative changes left greater than right also seen on 07/30/2023. There is now prosthetic right hip in place. Surgical clips overlie the right upper quadrant. XR/XR acute abdomen series IMPRESSION: Frontal view the chest shows findings most consistent with atelectasis due to less than optimal inspiratory radiograph. This is a limited frontal view the chest Abdominal radiographs show no evidence of acute findings. Electronically authenticated by: WAYNE BISWAS Date: 08/01/2023 15:12
--- NOTE | 2023-08-01 09:56 | P.ORPN_ITS ---
<Statement entered by Mauricio Donahue MD - 08/10/23 16:19> This documentation has been reviewed and approved. Subjective Subjective Interval history: Patient's reports she has been comfortable at rest. Pain when leg is moved. Exam Narrative Exam Narrative: No obvious distress Dressing C/D/I D.NV stable Thigh soft Constitutional Vital Signs, click to edit/add: Last Vital Signs Temp 98.9 F 08/01/23 05:17 Pulse 87 08/01/23 05:17 Resp 20 08/01/23 05:17 BP 114/70 08/01/23 05:17 Pulse Ox 96 08/01/23 05:17 O2 Del Method Nasal Cannula 08/01/23 05:17 O2 Flow Rate 4 08/01/23 05:17 Urinary Catheter Management Urinary Catheter Management 2-way Urethral: Cath placed during this visit: yes Urethral indwelling: Yes Reason for continuing: surgical procedure Insertion date: 07/30/23 Insertion time: 21:27
--- NOTE | 2023-08-01 09:58 | P.PN_ITS ---
Progress Note: Subjective Subjective Interval history: Patient does awaken to verbal and physical stimuli. Can understand some of her speech. She did not have any complaint. Exam Constitutional Vital Signs, click to edit/add: Last Vital Signs Temp 98.9 F 08/01/23 05:17 Pulse 87 08/01/23 05:17 Resp 20 08/01/23 05:17 BP 114/70 08/01/23 05:17 Pulse Ox 96 08/01/23 05:17 O2 Del Method Nasal Cannula 08/01/23 05:17 O2 Flow Rate 4 08/01/23 05:17 Documenting provider has reviewed patient's vital signs: yes Common normals: no apparent distress HENMT Common normals: moist oral mucous membranes Chest Common normals: inspection of chest normal Respiratory Common normals: normal respiratory effort and no retractions GI Common normals: tender (Mild diffuse tenderness) Extremity Common normals: normal to inspection (No edema) Progress Note: Objective Labs Labs: Short CBC 08/01/23 Range/Units 04:16 WBC 15.0 H (4.0-11.0) 10^3/uL Hgb 11.9 L (12.0-16.0) g/dL Hct 36.7 (36.0-48.0) % Plt Count 175 (150-450) 10^3/uL BMP 08/01/23 04:16 Sodium 134 L Potassium 4.5 Chloride 103 Carbon Dioxide 22.4 BUN 10.0 Creatinine 0.86 Glucose 108 H Calcium 8.0 L Liver Function 08/01/23 Range/Units 04:16 Total Bilirubin 0.6 (0.2-1.0) mg/dL AST 28 (15-37) U/L ALT 17 (14-59) U/L Alkaline Phosphatase 90 (46-116) U/L Albumin 2.4 L (3.4-5.0) g/dL Urine 08/01/23 Range/Units 07:50 Urine Color Yellow (YELLOW) Urine Clarity Clear (CLEAR) Urine pH 6.0 (5.0-9.0) Ur Specific [place] 1.025 (1.005-1.025) Urine Protein Trace (NEG/TRACE) mg/dL Urine Glucose (UA) Negative (NEGATIVE) mg/dL Progress Note: A&P Assessment and Plan (1) Subcapital fracture of right hip: Assessment and Plan: Plan per orthopedics, patient will need placement Qualifiers: Encounter type: initial encounter Fracture type: closed Qualified Code(s): S72.011A - Unspecified intracapsular fracture of right femur, initial encounter for closed fracture (2) Lewy body dementia: Assessment and Plan: Does awaken so far today. Likely deterioration in the dementia secondary to being in the hospital and sundowning Qualifiers: Dementia behavioral or psychological symptom: unspecified whether behavioral, psychotic, or mood disturbance or anxiety Dementia severity: severe Qualified Code(s): G31.83 - Neurocognitive disorder with Lewy bodies; F02.C0 - Dementia in other diseases classified elsewhere, severe, without behavioral disturbance, psychotic disturbance, mood disturbance, and anxiety (3) Hypertension: Assessment and Plan: Stable-continue with home medications Qualifiers: Hypertension type: primary hypertension Qualified Code(s): I10 - Essential (primary) hypertension (4) Preop cardiovascular exam: (5) Kathrine second degree AV block: Plan Hypoxia postoperatively-check chest x-ray, not significant enough to suspect pulmonary emboli Mild abdominal tenderness on exam-will check acute abdominal series Moderate protein calorie malnutrition-diet management Acute postoperative and intraoperative blood loss anemia-will check CBC daily. No evidence of active bleeding Leukocytosis-check urinalysis. Is improved today. Likely just demargination from fall. Patient currently on antibiotics Mild hyponatremia-secondary to intake. Consider adjusting fluids L Urinary Catheter Management Urinary Catheter Management 2-way Urethral: Cath placed during this visit: yes Urethral indwelling: Yes Reason for continuing: invasive procedure Insertion date: 07/30/23 Insertion time: 21:27
[2023-08-01] MEDS: MORPHINE SULFATE 2 MG/ML SYRINGE IV ×2 (12:22→17:31)
[2023-08-01 13:35] VITALS: BP 107/69; PULSE 91; RESP 20; TEMP 37; O2SAT 91
[2023-08-01 20:30] VITALS: O2SAT 92
[2023-08-01 21:26] VITALS: BP 136/77; PULSE 98; RESP 18; TEMP 36.5; O2SAT 91
[2023-08-01] MEDS: ENOXAPARIN SODIUM 40 MG/0.4 ML SYRINGE SUBQ (21:46)
[2023-08-02] VITALS (7 sets, daily range): BP systolic 134–156; BP diastolic 78–83; PULSE 62–99; RESP 14–20; TEMP 36.3–38.3; O2SAT 92–96
[2023-08-02] MEDS: MORPHINE SULFATE 2 MG/ML SYRINGE IV ×2 (03:21→13:13)
[2023-08-02 05:39] LABS: Hematocrit 31.6 % (36.0-48.0); Hemoglobin 10.4 g/dL (12.0-16.0); Mean Corpuscular HGB Conc 32.9 g/dL (29.9-35.2); Mean Corpuscular Hemoglobin 31.3 pg (26.7-34.0); Mean Corpuscular Volume 95.2 fL (81.0-99.0); Mean Platelet Volume 9.9 fL (9.5-13.5); Platelet Count 166 10^3/uL (150-450); Red Blood Count 3.32 10^6/uL (4.20-5.40); Red Cell Distribution Width 11.9 % (11.0-15.0); White Blood Count 13.6 10^3/uL (4.0-11.0)
[2023-08-02 06:05] LABS: Alanine Aminotransferase 16 U/L (14-59); Albumin Globulin Ratio 0.7; Albumin Level 2.5 g/dL (3.4-5.0); Alkaline Phosphatase 82 U/L (46-116); Anion Gap 11.7; Aspartate Amino Transferase 32 U/L (15-37); BUN Creatinine Ratio 13.6; Bilirubin Total 0.5 mg/dL (0.2-1.0); Calcium 8.2 mg/dL (8.5-10.1); Carbon Dioxide 27.2 mmol/L (21.0-32.0); Chloride 103 mmol/L (98-107); Estimated GFR (African America >60 (>=60); Estimated GFR (Non-African Ame >60 (>=60); Globulin 3.6 g/dL; Glucose 109 mg/dL (74-106); Potassium 3.9 mmol/L (3.5-5.1); Sodium 138 mmol/L (136-145); Total Protein 6.1 g/dL (6.4-8.2)
[2023-08-02 06:15] LABS: Free T3 1.66 pg/mL (2.18-3.98); Thyroid Stimulating Hormone 1.062 uIU/mL (0.358-3.740)
--- NOTE | 2023-08-02 06:27 | RESP.RT ---
decreased to 1L at this time
[2023-08-02] MEDS: 0.9 % SODIUM CHLORIDE 1,000 ML 100 ML IV ×2 (06:43→16:41)
--- NOTE | 2023-08-02 09:54 | P.PN_ITS ---
Progress Note: Subjective Subjective Interval history: Patient does awaken to verbal and physical stimuli. Denies abdominal pain today Exam Constitutional Vital Signs, click to edit/add: Last Vital Signs Temp 97.4 F L 08/02/23 05:08 Pulse 97 H 08/02/23 05:08 Resp 20 08/02/23 05:08 BP 156/82 H 08/02/23 05:08 Pulse Ox 96 08/02/23 05:23 O2 Del Method Nasal Cannula 08/02/23 05:23 O2 Flow Rate 2 08/02/23 05:23 Documenting provider has reviewed patient's vital signs: yes Common normals: no apparent distress HENMT Common normals: moist oral mucous membranes Chest Common normals: inspection of chest normal Respiratory Common normals: normal respiratory effort and no retractions GI Common normals: non-tender Extremity Common normals: normal to inspection (No edema) Progress Note: Objective Labs Labs: Short CBC 08/02/23 Range/Units 04:40 WBC 13.6 H (4.0-11.0) 10^3/uL Hgb 10.4 L (12.0-16.0) g/dL Hct 31.6 L (36.0-48.0) % Plt Count 166 (150-450) 10^3/uL BMP 08/02/23 04:40 Sodium 138 Potassium 3.9 Chloride 103 Carbon Dioxide 27.2 BUN 12.0 Creatinine 0.88 Glucose 109 H Calcium 8.2 L Liver Function 08/02/23 Range/Units 04:40 Total Bilirubin 0.5 (0.2-1.0) mg/dL AST 32 (15-37) U/L ALT 16 (14-59) U/L Alkaline Phosphatase 82 (46-116) U/L Albumin 2.5 L (3.4-5.0) g/dL Progress Note: A&P Assessment and Plan (1) Subcapital fracture of right hip: Assessment and Plan: Plan per orthopedics, patient will need placement Qualifiers: Encounter type: initial encounter Fracture type: closed Qualified Code(s): S72.011A - Unspecified intracapsular fracture of right femur, initial encounter for closed fracture (2) Lewy body dementia: Assessment and Plan: Does awaken so far today. Likely deterioration in the dementia secondary to being in the hospital and Qualifiers: Dementia behavioral or psychological symptom: unspecified whether behavioral, psychotic, or mood disturbance or anxiety Dementia severity: severe Qualified Code(s): G31.83 - Neurocognitive disorder with Lewy bodies; F02.C0 - Dementia in other diseases classified elsewhere, severe, without behavioral disturbance, psychotic disturbance, mood disturbance, and anxiety (3) Hypertension: Assessment and Plan: Stable-continue with home medications Qualifiers: Hypertension type: primary hypertension Qualified Code(s): I10 - Essential (primary) hypertension (4) Preop cardiovascular exam: (5) Kathrine second degree AV block: Plan Hypoxia postoperatively-chest x-ray did show some mild atelectasis Mild abdominal tenderness on exam-no acute findings. Improved Moderate protein calorie malnutrition-diet management Acute postoperative and intraoperative blood loss anemia-will check CBC daily. No evidence of active bleeding Leukocytosis-check urinalysis. Is improved today. No source of infection Mild hyponatremia-resolved Urinary Catheter Management Urinary Catheter Management 2-way Urethral: Cath placed during this visit: yes Urethral indwelling: Yes Reason for continuing: surgical procedure Insertion date: 07/30/23 Insertion time: 21:27
--- NOTE | 2023-08-02 17:13 | XR_ITS ---
The [address] [address] Patient Name: REYNALDO OLIVA MRN: [id number] date: 1940 Sex: F Assigned Patient Location: [place] Current Patient Location: [place] Accession/Order Number: [id number] Exam Date: 08/02/2023 17:40 Report Date: 08/02/2023 19:15 At the request of: WARD SÁNCHEZ Procedure: XR elbow RT 2V EXAM: XR elbow RT 2V HISTORY: Arm pain COMPARISON: None. TECHNIQUE: 2 views. FINDINGS: Suboptimal positioning of the lateral projection with rotation. No evidence of fracture or dislocation identified. Mild diffuse demineralization. XR/XR elbow RT 2V IMPRESSION: 1. Suboptimal positioning of the lateral with rotation. 2. No fracture or dislocation is identified. 3. Mild diffuse demineralization. Electronically authenticated by: COLLINS MILLER Date: 08/02/2023 19:15
--- NOTE | 2023-08-02 17:13 | XR_ITS ---
[address] [address] Patient Name: REYNALDO OLIVA MRN: [id number] date: 1940 Sex: F Assigned Patient Location: [place] Current Patient Location: [place] Accession/Order Number: [id number] Exam Date: 08/02/2023 17:40 Report Date: 08/02/2023 18:33 At the request of: WARD SÁNCHEZ Procedure: XR shoulder RT min 2V EXAM: XR shoulder RT min 2V HISTORY: shoulder pain COMPARISON: None. TECHNIQUE: AP, scapular Y radiographs of the shoulder labeled right FINDINGS: Osteophytes at the humeral head. Demineralization. No acute fracture. No dislocation. XR/XR shoulder RT min 2V IMPRESSION: 1. Mild degenerative change. 2. No acute osseous abnormality. Electronically authenticated by: HECTOR SY Date: 08/02/2023 18:33
--- NOTE | 2023-08-02 17:13 | XR_ITS ---
[address] [address] Patient Name: REYNALDO OLIVA MRN: [id number] date: 1940 Sex: F Assigned Patient Location: [place] Current Patient Location: [place] Accession/Order Number: [id number] Exam Date: 08/02/2023 17:40 Report Date: 08/02/2023 18:32 At the request of: WARD SÁNCHEZ Procedure: XR humerus RT EXAM: XR humerus RT HISTORY: R shoulder pain COMPARISON: None. TECHNIQUE: AP, lateral radiographs of the humerus labeled right FINDINGS: Osteophytes of the humeral head. No acute fracture or dislocation. Demineralization. Anatomic alignment. The soft tissues are normal. XR/XR humerus RT IMPRESSION: 1. No acute osseous abnormality. Electronically authenticated by: HECTOR SY Date: 08/02/2023 18:32
[2023-08-02] MEDS: ENOXAPARIN SODIUM 40 MG/0.4 ML SYRINGE SUBQ (22:15)
[2023-08-03] VITALS (10 sets, daily range): BP systolic 144–153; BP diastolic 76–87; PULSE 83–91; RESP 16–18; TEMP 37–37.3; O2SAT 85–97
[2023-08-03] MEDS: MORPHINE SULFATE 2 MG/ML SYRINGE IV ×2 (00:43→11:39)
[2023-08-03 05:33] LABS: Hematocrit 28.5 % (36.0-48.0); Hemoglobin 9.3 g/dL (12.0-16.0); Mean Corpuscular HGB Conc 32.6 g/dL (29.9-35.2); Mean Corpuscular Hemoglobin 31.2 pg (26.7-34.0); Mean Corpuscular Volume 95.6 fL (81.0-99.0); Mean Platelet Volume 10.1 fL (9.5-13.5); Platelet Count 184 10^3/uL (150-450); Red Blood Count 2.98 10^6/uL (4.20-5.40); Red Cell Distribution Width 11.8 % (11.0-15.0); White Blood Count 12.4 10^3/uL (4.0-11.0)
[2023-08-03 06:03] LABS: Alanine Aminotransferase 19 U/L (14-59); Albumin Globulin Ratio 0.6; Albumin Level 2.2 g/dL (3.4-5.0); Alkaline Phosphatase 77 U/L (46-116); Anion Gap 12.4; Aspartate Amino Transferase 29 U/L (15-37); BUN Creatinine Ratio 17.4; Bilirubin Total 0.6 mg/dL (0.2-1.0); Carbon Dioxide 25.3 mmol/L (21.0-32.0); Chloride 104 mmol/L (98-107); Estimated GFR (African America >60 (>=60); Estimated GFR (Non-African Ame >60 (>=60); Globulin 3.4 g/dL; Glucose 95 mg/dL (74-106); Potassium 3.7 mmol/L (3.5-5.1); Sodium 138 mmol/L (136-145); Total Protein 5.6 g/dL (6.4-8.2)
--- NOTE | 2023-08-03 06:32 | XR_ITS ---
The [address] [address] Patient Name: REYNALDO OLIVA MRN: [id number] date: 1940 Sex: F Assigned Patient Location: MS Current Patient Location: [place] Accession/Order Number: [id number] Exam Date: 08/03/2023 06:49 Report Date: 08/03/2023 07:03 At the request of: WARD SÁNCHEZ Procedure: XR chest 1V EXAM: XR chest 1V HISTORY: fever COMPARISON: 07/30/2023 TECHNIQUE: AP portable erect FINDINGS: LUNGS: Low lung volumes. Mild opacity right lung base and left midlung. VASCULATURE: No increased pulmonary vasculature. PLEURA: No pneumothorax, effusion, or pleural thickening. CARDIAC: No cardiomegaly or cardiac silhouette abnormality. MEDIASTINUM: No visible mass or adenopathy. BONES: No fracture or visible bone lesion. OTHER: Negative. XR/XR chest 1V IMPRESSION: Mild multifocal infiltrates, consider pneumonia Electronically authenticated by: RUDI LINARES Date: 08/03/2023 07:03
[2023-08-03] MEDS: LEVOFLOXACIN IN DEXTROSE 5 % 750 MG/150 ML IV.SOLN 100 MG IV (07:04)
--- NOTE | 2023-08-03 08:33 | PM.PN ---
Progress Note: Subjective Subjective Interval history: More lethargic this morning. But it was a different time of day than when I seen her in the past Exam Constitutional Vital Signs, click to edit/add: Last Vital Signs Temp 98.6 F 08/03/23 05:03 Pulse 83 08/03/23 05:03 Resp 18 08/03/23 05:03 BP 144/79 H 08/03/23 05:03 Pulse Ox 94 L 08/03/23 05:03 O2 Del Method Nasal Cannula 08/03/23 05:03 O2 Flow Rate 1.5 08/03/23 05:03 Documenting provider has reviewed patient's vital signs: yes Common normals: no apparent distress HENMT Common normals: moist oral mucous membranes Chest Common normals: inspection of chest normal Respiratory Common normals: normal respiratory effort (Has had a cough per nursing staff) and no retractions Effort & inspection: no respiratory distress Auscultation: diminished lung sounds (More shallow breathing today) GI Common normals: non-tender Extremity Common normals: normal to inspection (No edema) Progress Note: Objective Labs Labs: Short CBC 08/03/23 Range/Units 04:32 WBC 12.4 H (4.0-11.0) 10^3/uL Hgb 9.3 L (12.0-16.0) g/dL Hct 28.5 L (36.0-48.0) % Plt Count 184 (150-450) 10^3/uL BMP 08/03/23 04:32 Sodium 138 Potassium 3.7 Chloride 104 Carbon Dioxide 25.3 BUN 12.0 Creatinine 0.69 Glucose 95 Calcium 8.0 L Liver Function 08/03/23 Range/Units 04:32 Total Bilirubin 0.6 (0.2-1.0) mg/dL AST 29 (15-37) U/L ALT 19 (14-59) U/L Alkaline Phosphatase 77 (46-116) U/L Albumin 2.2 L (3.4-5.0) g/dL Progress Note: A&P Assessment and Plan (1) Subcapital fracture of right hip: Assessment and Plan: Status post surgery Qualifiers: Encounter type: initial encounter Fracture type: closed Qualified Code(s): S72.011A - Unspecified intracapsular fracture of right femur, initial encounter for closed fracture (2) Nosocomial pneumonia: Assessment and Plan: Chest x-ray clear on admission. Suggesting pneumonia. Patient also had fever overnight. Antibiotics were instituted. Patient is more lethargic today without may be a little fluid overloaded yesterday so we will hold off on further IV therapy depending on how well she starts eating. Reduce any sedation meds (3) Lewy body dementia: Assessment and Plan: Stable may be slightly worse with above new finding of nosocomial pneumonia Qualifiers: Dementia behavioral or psychological symptom: unspecified whether behavioral, psychotic, or mood disturbance or anxiety Dementia severity: severe Qualified Code(s): G31.83 - Neurocognitive disorder with Lewy bodies; F02.C0 - Dementia in other diseases classified elsewhere, severe, without behavioral disturbance, psychotic disturbance, mood disturbance, and anxiety (4) Hypertension: Assessment and Plan: Blood pressure stable Qualifiers: Hypertension type: primary hypertension Qualified Code(s): I10 - Essential (primary) hypertension (5) Preop cardiovascular exam: (6) Wenckebach second degree AV block: Urinary Catheter Management Urinary Catheter Management 2-way Urethral: Cath placed during this visit: yes Urethral indwelling: Yes Reason for continuing: acute urinary retention Insertion date: 07/30/23 Insertion time: 21:27
[2023-08-03] MEDS: PIPERACILLIN SODIUM/TAZOBACTAM 3.375 GM in 0.9 % SODIUM CHLORIDE 50 ML IV ×2 (09:03→17:24)
--- NOTE | 2023-08-03 09:44 | CM.NOTE ---
Rounds made with Dr. Gilmore. No family present in room. No plan for discharge today.
--- NOTE | 2023-08-03 12:19 | RESP.RT ---
placed on room air
--- NOTE | 2023-08-03 15:25 | SWNOTE1 ---
SW spoke to pt's in room. Pt has not been able to arose to get up and work with therapy over weekend or today. Therapy did did range of motion with pt. SW let know that SW would send updates to [facility]. Pt's voiced medicare may not pay for her to be there very long like this. SW in agreement. At this time SW to continue to work on getting pt to [facility]. They have accepted, but would like updates. SW sent updates. Updates included physician notes, PT/OT notes, vitals, pertinent nursing notes, labs, diagnostic imaging, and med list.
[2023-08-03] MEDS: 0.9 % SODIUM CHLORIDE 250 ML 10 ML IV (17:24)
[2023-08-03] MEDS: ENOXAPARIN SODIUM 40 MG/0.4 ML SYRINGE SUBQ (21:15)
[2023-08-04] VITALS (8 sets, daily range): BP systolic 156–162; BP diastolic 72–90; PULSE 85–105; RESP 18; TEMP 36.9–38.2; O2SAT 93–97
[2023-08-04] MEDS: MORPHINE SULFATE 2 MG/ML SYRINGE IV (00:47)
[2023-08-04] MEDS: PIPERACILLIN SODIUM/TAZOBACTAM 3.375 GM in 0.9 % SODIUM CHLORIDE 50 ML IV ×3 (01:40→17:03)
[2023-08-04 04:26] LABS: Hematocrit 29.7 % (36.0-48.0); Mean Corpuscular HGB Conc 33.7 g/dL (29.9-35.2); Mean Corpuscular Hemoglobin 31.6 pg (26.7-34.0); Mean Platelet Volume 9.4 fL (9.5-13.5); Platelet Count 213 10^3/uL (150-450); Red Blood Count 3.16 10^6/uL (4.20-5.40); Red Cell Distribution Width 11.5 % (11.0-15.0); White Blood Count 10.8 10^3/uL (4.0-11.0)
[2023-08-04 04:41] LABS: Alanine Aminotransferase 27 U/L (14-59); Albumin Globulin Ratio 0.5; Albumin Level 2.1 g/dL (3.4-5.0); Alkaline Phosphatase 92 U/L (46-116); Anion Gap 9.8; Aspartate Amino Transferase 36 U/L (15-37); BUN Creatinine Ratio 17.8; Calcium 8.2 mg/dL (8.5-10.1); Carbon Dioxide 26.8 mmol/L (21.0-32.0); Chloride 103 mmol/L (98-107); Estimated GFR (African America >60 (>=60); Estimated GFR (Non-African Ame >60 (>=60); Globulin 3.9 g/dL; Glucose 99 mg/dL (74-106); Potassium 3.6 mmol/L (3.5-5.1); Sodium 136 mmol/L (136-145)
[2023-08-04 07:36] LABS: Adenovirus NOT DETECTED (NOT DETECTE); Bordetella parapertussis NOT DETECTED (NOT DETECTE); Coronavirus 229E NOT DETECTED (NOT DETECTE); Coronavirus HKU1 NOT DETECTED (NOT DETECTE); Coronavirus NL63 NOT DETECTED (NOT DETECTE); Coronavirus OC43 NOT DETECTED (NOT DETECTE); Human Metapneumovirus NOT DETECTED (NOT DETECTE); Human Rhinovirus/Enterovirus NOT DETECTED (NOT DETECTE); Influenza A NOT DETECTED (NOT DETECTE); Influenza B NOT DETECTED (NOT DETECTE); Mycoplasma pneumoniae NOT DETECTED (NOT DETECTE); Parainfluenza Virus 1 NOT DETECTED (NOT DETECTE); Parainfluenza Virus 2 NOT DETECTED (NOT DETECTE); Parainfluenza Virus 3 NOT DETECTED (NOT DETECTE); Parainfluenza Virus 4 NOT DETECTED (NOT DETECTE); Respiratory Syncytial Virus NOT DETECTED (NOT DETECTE); SARS-CoV-2 NOT DETECTED (NOT DETECTE)
[2023-08-04 07:51] LABS: Ammonia 15 umol/L (11-32)
--- NOTE | 2023-08-04 08:53 | PM.PN ---
Progress Note: Subjective Subjective Interval history: Looks much better today than yesterday. Maybe not awake enough to eat yet but he is getting close. Discussed on care with Exam Constitutional Vital Signs, click to edit/add: Last Vital Signs Temp 98.4 F 08/04/23 05:47 Pulse 92 H 08/04/23 05:47 Resp 18 08/04/23 05:47 BP 160/90 H 08/04/23 05:47 Pulse Ox 94 L 08/04/23 05:47 O2 Del Method Nasal Cannula 08/04/23 05:47 O2 Flow Rate 1 08/04/23 05:47 Documenting provider has reviewed patient's vital signs: yes Common normals: no apparent distress HENMT Common normals: moist oral mucous membranes Chest Common normals: inspection of chest normal Respiratory Common normals: normal respiratory effort (No coughing on exam today) and no retractions Effort & inspection: no respiratory distress Auscultation: diminished lung sounds (More shallow breathing today) Cardio Common normals: regular rate and regular rhythm GI Common normals: non-tender Extremity Common normals: normal to inspection (No edema) Progress Note: Objective Labs Labs: Short CBC 08/04/23 Range/Units 04:03 WBC 10.8 (4.0-11.0) 10^3/uL Hgb 10.0 L (12.0-16.0) g/dL Hct 29.7 L (36.0-48.0) % Plt Count 213 (150-450) 10^3/uL BMP 08/04/23 04:03 Sodium 136 Potassium 3.6 Chloride 103 Carbon Dioxide 26.8 BUN 13.0 Creatinine 0.73 Glucose 99 Calcium 8.2 L Liver Function 08/04/23 Range/Units 04:03 Total Bilirubin 1.0 (0.2-1.0) mg/dL AST 36 (15-37) U/L ALT 27 (14-59) U/L Alkaline Phosphatase 92 (46-116) U/L Albumin 2.1 L (3.4-5.0) g/dL Progress Note: A&P Assessment and Plan (1) Subcapital fracture of right hip: Assessment and Plan: Status post surgery Qualifiers: Encounter type: initial encounter Fracture type: closed Qualified Code(s): S72.011A - Unspecified intracapsular fracture of right femur, initial encounter for closed fracture (2) Nosocomial pneumonia: Assessment and Plan: Chest x-ray clear on admission. 2/ suggesting pneumonia. Patient also had fever antibiotics were changed with fever and nosocomial pneumonia. Does appear to be better today. White blood cell count back down to normal. If continues to make progress possible discharge by to her rehab facility tomorrow (3) Lewy body dementia: Assessment and Plan: Stable may be slightly worse with above new finding of nosocomial pneumonia-if continues to improve possible discharge to rehab tomorrow Qualifiers: Dementia behavioral or psychological symptom: unspecified whether behavioral, psychotic, or mood disturbance or anxiety Dementia severity: severe Qualified Code(s): G31.83 - Neurocognitive disorder with Lewy bodies; F02.C0 - Dementia in other diseases classified elsewhere, severe, without behavioral disturbance, psychotic disturbance, mood disturbance, and anxiety (4) Hypertension: Assessment and Plan: Blood pressure stable Qualifiers: Hypertension type: primary hypertension Qualified Code(s): I10 - Essential (primary) hypertension (5) Preop cardiovascular exam: (6) Wenckebach second degree AV block: (7) Moderate protein-calorie malnutrition: Assessment and Plan: Continue to work on advancing diet Plan His condition deteriorated yesterday with nosocomial pneumonia, antibiotics instituted yesterday. Patient does appear to be somewhat better today already. Possible discharge tomorrow but more likely day after Urinary Catheter Management Urinary Catheter Management 2-way Urethral: Cath placed during this visit: yes Urethral indwelling: Yes Reason for continuing: acute urinary retention Insertion date: 07/30/23 Insertion time: 21:27
--- NOTE | 2023-08-04 09:27 | CM.NOTE ---
Rounds made with Dr. Gilmore. Mr. Tubbs in room and able to answer Dr. Gilmore's questions regarding previous level of functioning. Dr. Gilmore explains plan to is [facility] when more alert.
--- NOTE | 2023-08-04 10:16 | PC.NURSE ---
Patient is more responsive today than all day during dayshift yesterday. Patient slurred words when RN stated her name, also answered no when asked if patient was in pain. When asked if she would squeeze RN's hands patient lightly squeezed left hand. RN attempted to put patient's teeth in to see if that would help patient talk more clearly, patient was not cooperative with teeth being put in. RN wet mouth with swab and patient swallowed the drops of water from swab.
--- NOTE | 2023-08-04 11:54 | PT.DAILY ---
Physical Therapy Daily Note PT Daily Note/Assess Start: 08/04/23 11:45 Freq: Status: Active Protocol: Document 08/04/23 09:30 CHELLE (Rec: 08/04/23 11:54 [id number]) Physical Therapy Daily Note/Assessment Time In/Time Out Time In 09:30 Time Out 09:52 Pain In Pain N/A Pain Out Pain N/A Subjective Subjective Patient is more awake than previous date. Will answer no or okay to some questions, but does not answer all questions . Only says no and okay, but unsure to tell if questions are answered appropriately. Therapeutic Exercise Time Therapeutic Exercise Minutes (minutes) 20 Therapeutic Exercise Units 1 Therapeutic Exercise Treatment Therapeutic Exercise Treatment PROM exercises completed to B LE in all ranges 2x5 as patient allows today. Patient did not follow commands with exercise program today. With certain movements patient would resist movement, or jerk like a pain response, but would then say no when asked if that movement hurt. Patient spouse in room as well and states he is unable to tell if she really means no or not. Educated spouse in trying to get patient to follow along with AP when she is awake and responding more. He verbalizes understanding to this. Total Physical Therapy Time Total Therapy Minutes 20 Total Physical Therapy Units 1 Summary Daily Note Summary Patient appears to be more awake and responsive today, but is still unable to follow commands or stay completely awake throughout RX today. Educated spouse with simple ankle pumps as patient is able to follow along. Patient shows positive pain responses with ROM program today as well . We will continue to work with patient and progress patient as she is able to follow along with commands and stay awake. Continued to hold attempts at EOB sitting or transfers this date due to safety concerns. Continue to recommend SNF at [place].
--- NOTE | 2023-08-04 16:01 | SWNOTE1 ---
Updated physician notes, labs, PT, med list, vitals, and pertinent nursing notes sent to [facility]. They are ready for pt when she is medically stable for discharge.
[2023-08-04] MEDS: ENOXAPARIN SODIUM 40 MG/0.4 ML SYRINGE SUBQ (20:53)
[2023-08-05] VITALS (10 sets, daily range): BP systolic 126–162; BP diastolic 72–80; PULSE 77–83; RESP 14–18; TEMP 36.5–37.1; O2SAT 91–97
[2023-08-05] MEDS: PIPERACILLIN SODIUM/TAZOBACTAM 3.375 GM in 0.9 % SODIUM CHLORIDE 50 ML IV ×3 (01:01→18:17)
--- NOTE | 2023-08-05 08:52 | PC.NURSE ---
pt very lethargic, assessed what I could with pt as charted
--- NOTE | 2023-08-05 09:32 | P.PN_ITS ---
Progress Note: Subjective Subjective Interval history: Patient had another bad day today. Not responding significant to voice even the now yesterday was a better day when he was around. Will see how the day progresses, she did spike a fever again last night. Maintain current antibiotics Exam Constitutional Vital Signs, click to edit/add: Last Vital Signs Temp 98.7 F 08/05/23 04:41 Pulse 80 08/05/23 04:41 Resp 18 08/05/23 08:00 BP 162/80 H 08/05/23 04:41 Pulse Ox 97 08/05/23 08:00 O2 Del Method Nasal Cannula 08/05/23 04:41 O2 Flow Rate 1 08/05/23 04:41 Documenting provider has reviewed patient's vital signs: yes Common normals: no apparent distress HENMT Common normals: moist oral mucous membranes Chest Common normals: inspection of chest normal Respiratory Common normals: normal respiratory effort (No coughing on exam today) and no retractions Effort & inspection: no respiratory distress Auscultation: diminished lung sounds (More shallow breathing today) Cardio Common normals: regular rate and regular rhythm GI Common normals: non-tender Extremity Common normals: normal to inspection (No edema) Progress Note: A&P Assessment and Plan (1) Subcapital fracture of right hip: Assessment and Plan: Status post surgery Qualifiers: Encounter type: initial encounter Fracture type: closed Qualified Code(s): S72.011A - Unspecified intracapsular fracture of right femur, initial encounter for closed fracture (2) Nosocomial pneumonia: Assessment and Plan: Consider repeat chest x-ray. Patient did spike a fever last night but will maintain current antibiotics. (3) Lewy body dementia: Assessment and Plan: Patient condition has deteriorated, discussed with family options. For tonight were going to hold tight. Considerations for hospice in a.m., family un derstands she is not likely at all to recover to her previous baseline. Qualifiers: Dementia behavioral or psychological symptom: unspecified whether behavioral, psychotic, or mood disturbance or anxiety Dementia severity: severe Qualified Code(s): G31.83 - Neurocognitive disorder with Lewy bodies; F02.C0 - Dementia in other diseases classified elsewhere, severe, without behavioral disturbance, psychotic disturbance, mood disturbance, and anxiety (4) Hypertension: Assessment and Plan: Blood pressure stable Qualifiers: Hypertension type: primary hypertension Qualified Code(s): I10 - Essential (primary) hypertension (5) Preop cardiovascular exam: (6) Wenckebach second degree AV block: (7) Moderate protein-calorie malnutrition: Assessment and Plan: Currently patient is n.p.o. secondary to unable to swallow Plan Her condition continues to deteriorate. This is likely related to the pneumonia and then her dementia. Patient unable to eat. Patient was adamant that she did not want a feeding tube placed if she got to this point in life. Main thing things over tonight. Likely discharge to hospice tomorrow Urinary Catheter Management Urinary Catheter Management 2-way Urethral: Cath placed during this visit: yes Urethral indwelling: Yes Reason for continuing: end of life care Insertion date: 07/30/23 Insertion time: 21:27
--- NOTE | 2023-08-05 09:35 | XR_ITS ---
[address] [address] Patient Name: REYNALDO OLIVA MRN: [id number] date: 1940 Sex: F Assigned Patient Location: [place] Current Patient Location: [place] Accession/Order Number: [id number] Exam Date: 08/05/2023 10:00 Report Date: 08/05/2023 10:30 At the request of: WARD SÁNCHEZ Procedure: XR chest 1V EXAM: XR chest 1V CLINICAL INDICATION: hypoxia TECHNIQUE: Portable frontal semi-erect view of the chest. COMPARISON: 08/03/2023 FINDINGS: Lines and tubes: None. Lungs: No convincing focal infiltrates. No pleural effusion or pneumothorax. Heart: Cardiac and mediastinal contours are unremarkable. No overt pulmonary vascular congestion. Osseous structures: No acute abnormalities. XR/XR chest 1V IMPRESSION: No acute cardiopulmonary process. Electronically authenticated by: CHITRA COLBERT Date: 08/05/2023 10:30
--- NOTE | 2023-08-05 10:05 | CM.NOTE ---
Rounds made with Dr. Gilmore. Dr. Gilmore would like to see increased po intake-if able. No plan for discharge.
[2023-08-05 10:34] LABS: Basophils Absolute Auto 0.1 10^3/uL (0.0-0.1); Basophils Percent Auto 0.9 % (0.2-2.0); Eosinophils Absolute Auto 0.5 10^3/uL (0.0-0.7); Eosinophils Percent Auto 4.6 % (0.9-7.0); Hematocrit 29.4 % (36.0-48.0); Immature Granulocytes Abs Auto 0.28 10^3/uL (0.00-0.03); Immature Granulocytes Pct Auto 2.7 % (0.0-0.5); Lymphocytes Absolute Auto 1.3 10^3/uL (1.2-3.8); Lymphocytes Percent Auto 12.5 % (20.5-60.0); Mean Corpuscular Hemoglobin 31.6 pg (26.7-34.0); Mean Platelet Volume 9.3 fL (9.5-13.5); Monocytes Absolute Auto 1.2 10^3/uL (0.3-0.8); Monocytes Percent Auto 11.2 % (1.7-12.0); Neutrophils Absolute Auto 7.2 10^3/uL (1.4-6.5); Neutrophils Percent Auto 68.1 % (43.0-75.0); Platelet Count 268 10^3/uL (150-450); Red Blood Count 3.16 10^6/uL (4.20-5.40); Red Cell Distribution Width 11.6 % (11.0-15.0); White Blood Count 10.5 10^3/uL (4.0-11.0)
--- NOTE | 2023-08-05 11:00 | REH.PTDLY ---
Physical Therapy Daily Note PT Daily Note/Assess Start: 08/04/23 11:45 Freq: Status: Active Protocol: Document 08/05/23 10:55 DESMOND (Rec: 08/05/23 11:00 [id number] Physical Therapy Daily Note/Assessment Time In 08:55 Time Out 09:05 Pain Unresponsive Pain Unresponsive Subjective Pt mumbles when spoken too, does not open her eyes. Nursing in room, ok to do bed exs as jose cruz with pt. Therapeutic Exercise Minutes (minutes) 8 Therapeutic Exercise Units 1 Therapeutic Exercise Treatment Cues for pt to participate with exs, but pt does not. Still just mumbles and hard to understand what pt is saying. PROM to B LE's 10x for improved mobility. Cautious of R hip. Total Therapy Minutes 8 Total Physical Therapy Units 1 Daily Note Summary Only able to perform PROM with pt today as pt is not alert enough to follow cues or get out of bed safely. Pt will need SNF stay at [place].
[2023-08-05 11:12] LABS: Alanine Aminotransferase 34 U/L (14-59); Albumin Globulin Ratio 0.5; Albumin Level 2.1 g/dL (3.4-5.0); Alkaline Phosphatase 105 U/L (46-116); Anion Gap 12.2; Aspartate Amino Transferase 39 U/L (15-37); BUN Creatinine Ratio 19.7; Calcium 8.4 mg/dL (8.5-10.1); Carbon Dioxide 25.4 mmol/L (21.0-32.0); Chloride 103 mmol/L (98-107); Estimated GFR (African America >60 (>=60); Estimated GFR (Non-African Ame >60 (>=60); Globulin 4.1 g/dL; Glucose 97 mg/dL (74-106); Potassium 3.6 mmol/L (3.5-5.1); Sodium 137 mmol/L (136-145); Total Protein 6.2 g/dL (6.4-8.2)
[2023-08-05] MEDS: 0.9 % SODIUM CHLORIDE 250 ML 10 ML IV (11:22)
[2023-08-05] MEDS: LEVOFLOXACIN IN DEXTROSE 5 % 750 MG/150 ML IV.SOLN 100 MG IV (11:23)
[2023-08-05] MEDS: ENSURE HP 237 ML LIQUID PO (11:24)
[2023-08-05] MEDS: MORPHINE SULFATE 2 MG/ML SYRINGE IV ×2 (11:50→18:19)
--- NOTE | 2023-08-05 14:34 | SWNOTE1 ---
LYUBOV spoke with pt's daughter in room. Pt's daughter did have questions in regards to how long pt is able to stay here at hospital. SW expressed she has to be medically stable to be discharged and it is uncertain at this time. SW let her know pt had a fever last night and has not been able to eat more than a few bites of pudding. Pt's daughter did ask what the next steps were if she isn't eating. Pt's daughter asked if hospice would be next. SW spoke to her about hospice and that SW can have them come in anytime to do an assessment. She voiced understanding. Pt's came in room shortly after. He voiced that she is a little worse than yesterday. He also spoke about her eating some pudding, but she wasn't drinking the ensure today. He let SW know nurse was getting her some medication for pain. LYUBOV also spoke with about hospice as well. At this time no further questions and no hospice at this time. Pt's did voice he has had good and bad experiences with hospice. SW to stop back in tomorrow. LYUBOV sent updated physician notes, labs, PT/OT, nursing notes, and med list.
--- NOTE | 2023-08-05 14:49 | SWNOTE1 ---
During conversation with pt's daughter earlier, she did voice if it came down to needing a feeding tube, pt's wishes were to not have one.
[2023-08-05] MEDS: DEXTROSE 5%-0.9% NACL 1,000 ML 1,000 ML 60 ML IV (18:17)
[2023-08-05] MEDS: ENOXAPARIN SODIUM 40 MG/0.4 ML SYRINGE SUBQ (21:43)
[2023-08-06] MEDS: PIPERACILLIN SODIUM/TAZOBACTAM 3.375 GM in 0.9 % SODIUM CHLORIDE 50 ML IV ×3 (00:49→17:10)
[2023-08-06] MEDS: MORPHINE SULFATE 2 MG/ML SYRINGE IV ×3 (05:39→20:32)
[2023-08-06 05:42] VITALS: BP 154/82; PULSE 89; RESP 18; TEMP 37.4; O2SAT 93
[2023-08-06 07:00] LABS: Basophils Absolute Auto 0.1 10^3/uL (0.0-0.1); Basophils Percent Auto 0.7 % (0.2-2.0); Eosinophils Absolute Auto 0.4 10^3/uL (0.0-0.7); Eosinophils Percent Auto 3.9 % (0.9-7.0); Hemoglobin 9.9 g/dL (12.0-16.0); Immature Granulocytes Abs Auto 0.47 10^3/uL (0.00-0.03); Immature Granulocytes Pct Auto 4.2 % (0.0-0.5); Lymphocytes Absolute Auto 1.4 10^3/uL (1.2-3.8); Lymphocytes Percent Auto 12.4 % (20.5-60.0); Mean Corpuscular Hemoglobin 31.4 pg (26.7-34.0); Mean Corpuscular Volume 95.2 fL (81.0-99.0); Mean Platelet Volume 9.1 fL (9.5-13.5); Monocytes Absolute Auto 1.4 10^3/uL (0.3-0.8); Monocytes Percent Auto 12.2 % (1.7-12.0); Neutrophils Absolute Auto 7.4 10^3/uL (1.4-6.5); Neutrophils Percent Auto 66.6 % (43.0-75.0); Platelet Count 285 10^3/uL (150-450); Red Blood Count 3.15 10^6/uL (4.20-5.40); Red Cell Distribution Width 11.8 % (11.0-15.0); White Blood Count 11.1 10^3/uL (4.0-11.0)
[2023-08-06 07:53] LABS: Alanine Aminotransferase 34 U/L (14-59); Albumin Globulin Ratio 0.5; Alkaline Phosphatase 98 U/L (46-116); Anion Gap 11.1; Aspartate Amino Transferase 32 U/L (15-37); BUN Creatinine Ratio 17.6; Calcium 8.2 mg/dL (8.5-10.1); Carbon Dioxide 26.5 mmol/L (21.0-32.0); Chloride 103 mmol/L (98-107); Estimated GFR (African America >60 (>=60); Estimated GFR (Non-African Ame >60 (>=60); Glucose 122 mg/dL (74-106); Potassium 3.6 mmol/L (3.5-5.1); Sodium 137 mmol/L (136-145)
--- NOTE | 2023-08-06 09:43 | PM.DS1 ---
DS: Providers Provider Date of admission: 07/30/23 21:42 Primary care physician: Everardo Salmon DO Consults: 07/30/23 21:03 Consult to Orthopedic Surgery Routine Consulting Provider: Mauricio Donahue Reason For Exam: Reason for consultation: subcapital right hip fracture Has provider been notified: Yes 07/31/23 06:44 Consult to Cardiology Routine Reason for consultation: presurg clearance, afib, echo ordered Has provider been notified: No 07/31/23 17:49 Physical Therapy Eval and Treat Routine Reason for consultation: s/p right hip hemiarthroplasty. WBAT Has provider been notified: No 08/05/23 12:20 Speech Therapy Eval and Treat Routine Reason for consultation: aspiration Has provider been notified: No DS: Diagnosis Discharge Diagnosis (1) Subcapital fracture of right hip: Qualifiers: Encounter type: initial encounter Fracture type: closed Qualified Code(s): S72.011A - Unspecified intracapsular fracture of right femur, initial encounter for closed fracture (2) Nosocomial pneumonia: (3) Lewy body dementia: Qualifiers: Dementia severity: severe Dementia behavioral or psychological symptom: unspecified whether behavioral, psychotic, or mood disturbance or anxiety Qualified Code(s): G31.83 - Neurocognitive disorder with Lewy bodies; F02.C0 - Dementia in other diseases classified elsewhere, severe, without behavioral disturbance, psychotic disturbance, mood disturbance, and anxiety (4) Hypertension: Qualifiers: Hypertension type: primary hypertension Qualified Code(s): I10 - Essential (primary) hypertension (5) Preop cardiovascular exam: (6) Wenckebach second degree AV block: (7) Moderate protein-calorie malnutrition: DS: Summary Time Spent with Patient Time attestation: Total time spent providing and/or coordinating discharge services: Exam Constitutional Vital Signs, click to edit/add: Last Vital Signs Temp 99.4 F 08/06/23 05:42 Pulse 89 08/06/23 05:42 Resp 18 08/06/23 05:42 BP 154/82 H 08/06/23 05:42 Pulse Ox 93 L 08/06/23 05:42 O2 Del Method Nasal Cannula 08/06/23 05:42 O2 Flow Rate 1 08/06/23 05:42 DS: Data Data Completed and Pending Labs on day of discharge: Labs from last 24 hours 08/06/23 08/05/23 06:19 10:16 WBC 11.1 H 10.5 RBC 3.15 L 3.16 L Hgb 9.9 L 10.0 L Hct 30.0 L 29.4 L MCV 95.2 93.0 MCH 31.4 31.6 MCHC 33.0 34.0 RDW 11.8 11.6 Plt Count 285 268 MPV 9.1 L 9.3 L Neut % (Auto) 66.6 68.1 Lymph % (Auto) 12.4 L 12.5 L Emanuel % (Auto) 12.2 H 11.2 Eos % (Auto) 3.9 4.6 Baso % (Auto) 0.7 0.9 Neut # (Auto) 7.4 H 7.2 H Lymph # (Auto) 1.4 1.3 Emanuel # (Auto) 1.4 H 1.2 H Eos # (Auto) 0.4 0.5 Baso # (Auto) 0.1 0.1 Abs Immat Gran (auto) 0.47 H 0.28 H Imm/Tot Granulo (auto) 4.2 H 2.7 H Sodium 137 137 Potassium 3.6 3.6 Chloride 103 103 Carbon Dioxide 26.5 25.4 Anion Gap 11.1 12.2 BUN 13.0 13.0 Creatinine 0.74 0.66 Est GFR ( Amer) >60 >60 Est GFR (Non-Af Amer) >60 >60 BUN/Creatinine Ratio 17.6 19.7 Glucose 122 H 97 Calcium 8.2 L 8.4 L Total Bilirubin 1.0 1.0 AST 32 39 H ALT 34 34 Alkaline Phosphatase 98 105 Total Protein 6.0 L 6.2 L Albumin 2.0 L 2.1 L Globulin 4.0 4.1 Albumin/Globulin Ratio 0.5 0.5 Discharge Plan Discharge Discharge Medications: No Action escitalopram oxalate 5 mg tablet 5 mg PO DAILY memantine 10 mg tablet 10 mg PO BID losartan 25 mg tablet 25 mg PO DAILY mirtazapine 30 mg tablet 30 mg PO QPM omeprazole 20 mg capsule,delayed release(DR/EC) 20 mg PO BID rivastigmine tartrate 3 mg capsule 3 mg PO BID
--- NOTE | 2023-08-06 09:46 | CM.NOTE ---
Rounds made with Dr. Gilmore. Smiley Arley minimally responsive to Dr. Gilmore. Awaiting family for plan of care.
--- NOTE | 2023-08-06 10:42 | SWNOTE1 ---
SW received call from nursing and pt would like to speak to SW. Nursing also informed SW they would like [facility].
[2023-08-06 11:59] VITALS: O2SAT 95
[2023-08-06] MEDS: DEXTROSE 5%-0.9% NACL 1,000 ML 1,000 ML 60 ML IV (12:02)
--- NOTE | 2023-08-06 13:39 | SWNOTE1 ---
SW called [email or web address] hospice and spoke to intake. They informed SW they are not able to come see pt until tomorrow morning. SW requested to speak to sheet metal supervisor. SW informed Janet, director of case management. Recommended to reach out to our contact. SW called Jahaira Stewart, provider relations. Jahaira is going to check in to this. SW to update family.
[2023-08-06 15:00] VITALS: PULSE 89; O2SAT 95
--- NOTE | 2023-08-06 15:35 | SWNOTE1 ---
After several phone calls back and forth with [facility], it was confirmed the earliest they can be here is 8:30-9:00. Chantal voiced they have to confirm with the family first and are not able to confirm with us without family. SW and pt's called Chantal together to confirm time. Nursing and doctor notified.
--- NOTE | 2023-08-06 19:04 | PM.PN ---
Progress Note: Subjective Subjective Interval history: Patient is somnolent on rounds this morning when I came back around was with her and was little bit more awake then. Still nonverbal though. Exam Constitutional Vital Signs, click to edit/add: Last Vital Signs Temp 99.4 F 08/06/23 05:42 Pulse 89 08/06/23 15:00 Resp 18 08/06/23 05:42 BP 154/82 H 08/06/23 05:42 Pulse Ox 95 08/06/23 15:00 O2 Del Method Nasal Cannula 08/06/23 11:59 O2 Flow Rate 1 08/06/23 11:59 Documenting provider has reviewed patient's vital signs: yes Common normals: no apparent distress HENMT Common normals: moist oral mucous membranes Chest Common normals: inspection of chest normal Respiratory Common normals: normal respiratory effort (No coughing on exam today) and no retractions Effort & inspection: no respiratory distress Auscultation: diminished lung sounds (More shallow breathing today) Cardio Common normals: regular rate and regular rhythm GI Common normals: non-tender Extremity Common normals: normal to inspection (No edema) Progress Note: Objective Labs Labs: Short CBC 08/06/23 Range/Units 06:19 WBC 11.1 H (4.0-11.0) 10^3/uL Hgb 9.9 L (12.0-16.0) g/dL Hct 30.0 L (36.0-48.0) % Plt Count 285 (150-450) 10^3/uL BMP 08/06/23 06:19 Sodium 137 Potassium 3.6 Chloride 103 Carbon Dioxide 26.5 BUN 13.0 Creatinine 0.74 Glucose 122 H Calcium 8.2 L Liver Function 08/06/23 Range/Units 06:19 Total Bilirubin 1.0 (0.2-1.0) mg/dL AST 32 (15-37) U/L ALT 34 (14-59) U/L Alkaline Phosphatase 98 (46-116) U/L Albumin 2.0 L (3.4-5.0) g/dL Progress Note: A&P Assessment and Plan (1) Subcapital fracture of right hip: Assessment and Plan: Status post surgery Qualifiers: Encounter type: initial encounter Fracture type: closed Qualified Code(s): S72.011A - Unspecified intracapsular fracture of right femur, initial encounter for closed fracture (2) Nosocomial pneumonia: Assessment and Plan: Maintain current antibiotics, white blood cell count improving (3) Lewy body dementia: Assessment and Plan: Patient condition has deteriorated, discussed with family options. Hospice consulted today Qualifiers: Dementia severity: severe Dementia behavioral or psychological symptom: unspecified whether behavioral, psychotic, or mood disturbance or anxiety Qualified Code(s): G31.83 - Neurocognitive disorder with Lewy bodies; F02.C0 - Dementia in other diseases classified elsewhere, severe, without behavioral disturbance, psychotic disturbance, mood disturbance, and anxiety (4) Hypertension: Assessment and Plan: Blood pressure stable Qualifiers: Hypertension type: primary hypertension Qualified Code(s): I10 - Essential (primary) hypertension (5) Preop cardiovascular exam: (6) Wenckebach second degree AV block: (7) Moderate protein-calorie malnutrition: Assessment and Plan: Currently patient is n.p.o. secondary to unable to swallow Plan Family did request a hospice consultation. That will take place tomorrow. Patient will be an excellent candidate for inpatient hospice Urinary Catheter Management Urinary Catheter Management 2-way Urethral: Cath placed during this visit: yes Urethral indwelling: Yes Reason for continuing: end of life care Insertion date: 07/30/23 Insertion time: 21:27
[2023-08-06] MEDS: ENOXAPARIN SODIUM 40 MG/0.4 ML SYRINGE SUBQ (21:38)
[2023-08-06 21:43] VITALS: BP 155/68; PULSE 83; RESP 20; TEMP 37.3; O2SAT 94
[2023-08-07] MEDS: PIPERACILLIN SODIUM/TAZOBACTAM 3.375 GM in 0.9 % SODIUM CHLORIDE 50 ML IV (00:30)
[2023-08-07 05:05] LABS: Basophils Absolute Auto 0.1 10^3/uL (0.0-0.1); Basophils Percent Auto 0.7 % (0.2-2.0); Eosinophils Absolute Auto 0.5 10^3/uL (0.0-0.7); Eosinophils Percent Auto 4.6 % (0.9-7.0); Hematocrit 29.9 % (36.0-48.0); Hemoglobin 9.7 g/dL (12.0-16.0); Immature Granulocytes Abs Auto 0.46 10^3/uL (0.00-0.03); Immature Granulocytes Pct Auto 4.4 % (0.0-0.5); Lymphocytes Absolute Auto 1.4 10^3/uL (1.2-3.8); Lymphocytes Percent Auto 13.7 % (20.5-60.0); Mean Corpuscular HGB Conc 32.4 g/dL (29.9-35.2); Mean Corpuscular Hemoglobin 30.9 pg (26.7-34.0); Mean Corpuscular Volume 95.2 fL (81.0-99.0); Mean Platelet Volume 9.1 fL (9.5-13.5); Monocytes Absolute Auto 1.2 10^3/uL (0.3-0.8); Monocytes Percent Auto 10.9 % (1.7-12.0); Neutrophils Absolute Auto 6.9 10^3/uL (1.4-6.5); Neutrophils Percent Auto 65.7 % (43.0-75.0); Platelet Count 343 10^3/uL (150-450); Red Blood Count 3.14 10^6/uL (4.20-5.40); Red Cell Distribution Width 11.8 % (11.0-15.0); White Blood Count 10.5 10^3/uL (4.0-11.0)
[2023-08-07] MEDS: DEXTROSE 5%-0.9% NACL 1,000 ML 1,000 ML 60 ML IV (05:20)
[2023-08-07 05:24] VITALS: BP 149/71; PULSE 78; RESP 18; TEMP 36.6; O2SAT 95
[2023-08-07 05:37] LABS: Alanine Aminotransferase 33 U/L (14-59); Albumin Globulin Ratio 0.5; Alkaline Phosphatase 94 U/L (46-116); Anion Gap 9.5; Aspartate Amino Transferase 30 U/L (15-37); BUN Creatinine Ratio 13.3; Bilirubin Total 0.9 mg/dL (0.2-1.0); Calcium 8.2 mg/dL (8.5-10.1); Carbon Dioxide 29.2 mmol/L (21.0-32.0); Chloride 105 mmol/L (98-107); Estimated GFR (African America >60 (>=60); Estimated GFR (Non-African Ame >60 (>=60); Globulin 3.8 g/dL; Glucose 127 mg/dL (74-106); Potassium 3.7 mmol/L (3.5-5.1); Sodium 140 mmol/L (136-145); Total Protein 5.8 g/dL (6.4-8.2)
[2023-08-07 07:30] VITALS: RESP 20
[2023-08-07 07:37] VITALS: BP 156/79; PULSE 80; RESP 13; O2SAT 93
--- NOTE | 2023-08-07 08:51 | CM.NOTE ---
Rounds made with Dr. Gilmore. Awaiting Hospice consult and recommendations.
--- NOTE | 2023-08-07 08:54 | P.DS_ITS ---
DS: Providers Provider Date of admission: 07/30/23 21:42 Primary care physician: Everardo Salmon DO Consults: 07/30/23 21:03 Consult to Orthopedic Surgery Routine Consulting Provider: Mauricio Donahue Reason For Exam: Reason for consultation: subcapital right hip fracture Has provider been notified: Yes 07/31/23 06:44 Consult to Cardiology Routine Reason for consultation: presurg clearance, afib, echo ordered Has provider been notified: No 07/31/23 17:49 Physical Therapy Eval and Treat Routine Reason for consultation: s/p right hip hemiarthroplasty. WBAT Has provider been notified: No 08/05/23 12:20 Speech Therapy Eval and Treat Routine Reason for consultation: aspiration Has provider been notified: No 08/06/23 Consult to Hospice Routine Reason for consultation: Decline in status DS: Diagnosis Discharge Diagnosis (1) Subcapital fracture of right hip: Qualifiers: Encounter type: initial encounter Fracture type: closed Qualified Code(s): S72.011A - Unspecified intracapsular fracture of right femur, initial encounter for closed fracture (2) Nosocomial pneumonia: (3) Lewy body dementia: Qualifiers: Dementia behavioral or psychological symptom: unspecified whether behavioral, psychotic, or mood disturbance or anxiety Dementia severity: severe Qualified Code(s): G31.83 - Neurocognitive disorder with Lewy bodies; F02.C0 - Dementia in other diseases classified elsewhere, severe, without behavioral disturbance, psychotic disturbance, mood disturbance, and anxiety (4) Hypertension: Qualifiers: Hypertension type: primary hypertension Qualified Code(s): I10 - Essential (primary) hypertension (5) Preop cardiovascular exam: (6) Wenckebach second degree AV block: (7) Moderate protein-calorie malnutrition: DS: Summary Hospital Course Hospital Course: Patient was admitted after a fall. Found to have hip fracture. That was repaired. Difficult postoperative course. Her dementia symptoms progressed. To the point of difficulty swallowing. She had 1 episode at nighttime where she had acute onset of hypoxia. She likely aspirated at that time. Antibiotics were instituted. Breathing treatments were instituted patient had really no significant improvement in her altered mental status. Her dementia seems to be progressing. Her pneumonia is fairly stable although with her inability to swallow she is already expressed prior to this she would not want a feeding tube placed. With further discussion with family they felt patient was ready for hospice. I would agree. In keeping with patient's wishes we will not proceed with feeding tube. Patient with severe dementia prior to hospitalization. Patient condition terminal Time Spent with Patient Time attestation: Total time spent providing and/or coordinating discharge services: Exam Constitutional Vital Signs, click to edit/add: Last Vital Signs Temp 97.9 F 08/07/23 05:24 Pulse 80 08/07/23 07:37 Resp 13 08/07/23 07:37 BP 156/79 H 08/07/23 07:37 Pulse Ox 93 L 08/07/23 07:37 O2 Del Method Nasal Cannula 08/07/23 07:37 O2 Flow Rate 1 08/07/23 07:37 Documenting provider has reviewed patient's vital signs: yes Common normals: no apparent distress HENMT Common normals: moist oral mucous membranes Chest Common normals: inspection of chest normal Respiratory Common normals: normal respiratory effort (No coughing on exam today) and no retractions Effort & inspection: no respiratory distress Auscultation: diminished lung sounds (More shallow breathing today) Cardio Common normals: regular rate and regular rhythm GI Common normals: non-tender Extremity Common normals: normal to inspection (No edema) DS: Data Data Completed and Pending Labs on day of discharge: Labs from last 24 hours 08/07/23 04:16 WBC 10.5 RBC 3.14 L Hgb 9.7 L Hct 29.9 L MCV 95.2 MCH 30.9 MCHC 32.4 RDW 11.8 Plt Count 343 MPV 9.1 L Neut % (Auto) 65.7 Lymph % (Auto) 13.7 L [place] % (Auto) 10.9 Eos % (Auto) 4.6 Baso % (Auto) 0.7 Neut # (Auto) 6.9 H Lymph # (Auto) 1.4 [place] # (Auto) 1.2 H Eos # (Auto) 0.5 Baso # (Auto) 0.1 Abs Immat Gran (auto) 0.46 H Imm/Tot Granulo (auto) 4.4 H Sodium 140 Potassium 3.7 Chloride 105 Carbon Dioxide 29.2 Anion Gap 9.5 BUN 10.0 Creatinine 0.75 Est GFR ( Amer) >60 Est GFR (Non-Af Amer) >60 BUN/Creatinine Ratio 13.3 Glucose 127 H Calcium 8.2 L Total Bilirubin 0.9 AST 30 ALT 33 Alkaline Phosphatase 94 Total Protein 5.8 L Albumin 2.0 L Globulin 3.8 Albumin/Globulin Ratio 0.5 Discharge Plan Discharge Disposition: Hospice - Medical Facility Discharge Medications: Continued escitalopram oxalate 5 mg tablet 5 mg PO DAILY memantine 10 mg tablet 10 mg PO BID losartan 25 mg tablet 25 mg PO DAILY mirtazapine 30 mg tablet 30 mg PO QPM omeprazole 20 mg capsule,delayed release(DR/EC) 20 mg PO BID rivastigmine tartrate 3 mg capsule 3 mg PO BID Weigher Operator/Public Information Specialist Instructions: Discharge to [facility] inpatient unit. Forms: Portal Instructions Discharge Date/Time: 08/07/23 12:20
--- NOTE | 2023-08-07 08:59 | SWNOTE1 ---
[facility] completed assessment in room with family and pt is accepted to [facility] inpt unit. SW let Dr. Gilmore know.
[2023-08-07] MEDS: MORPHINE SULFATE 2 MG/ML SYRINGE IV (09:31)
[2023-08-07] MEDS: SCOPOLAMINE 1 MG/3 DAYS TRANSDERM PATCH 1 PATCH TD (09:34)
[2023-08-07] MEDS: LEVOFLOXACIN IN DEXTROSE 5 % 750 MG/150 ML IV.SOLN 100 MG IV (09:34)
--- NOTE | 2023-08-07 10:32 | SWNOTE1 ---
[facility] set up [employer] transportation for 12:30. Nursing is aware, and family is aware of time. LYUBOV faxed over dc med rec to [facility] inpt unit. LYUBOV gave nurse number for report for inpt unit.
[2023-08-07 11:00] VITALS: BP 127/83; PULSE 82; RESP 20; TEMP 36.8; O2SAT 94
[2023-08-07 11:51] VITALS: O2SAT 90
== END 2023-08-07 12:20 | disposition hospice, inpatient (51) | DRG 521 ==
LOC: ER 21:03 → ICU 21:50 → MS 07-31 12:27
PROVIDERS: Family Medicine; Nurse Practitioner Acute Care; Orthopaedic Surgery; Admitting Provider Family Medicine; Emergency Provider Emergency Medicine; PCP Internal Medicine; Visit Provider Family Medicine
PROC: 0SRR0J9 Replacement of Right Hip Joint, Femoral Surface with Synthetic Substitute, Cemented, Open Approach (ICD-10-PCS; principal; 2023-07-31 15:00)
DX: S72.011A Unspecified intracapsular fracture of right femur, initial encounter for closed fracture (principal); J18.9 Pneumonia, unspecified organism; D62 Acute posthemorrhagic anemia; E87.1 Hypo-osmolality and hyponatremia; E44.0 Moderate protein-calorie malnutrition; G31.83 Neurocognitive disorder with Lewy bodies; I10 Essential (primary) hypertension; I44.1 Atrioventricular block, second degree; F02.C0 Dementia in other diseases classified elsewhere, severe, without behavioral disturbance, psychotic disturbance, mood disturbance, and anxiety; R09.02 Hypoxemia; D72.829 Elevated white blood cell count, unspecified; Z68.28 Body mass index [BMI] 28.0-28.9, adult; Z66 Do not resuscitate; K21.9 Gastro-esophageal reflux disease without esophagitis; M19.90 Unspecified osteoarthritis, unspecified site; Y95 Nosocomial condition; Z90.49 Acquired absence of other specified parts of digestive tract; W01.0XXA Fall on same level from slipping, tripping and stumbling without subsequent striking against object, initial encounter; Z90.710 Acquired absence of both cervix and uterus; Z79.899 Other long term (current) drug therapy; R10.9 Unspecified abdominal pain; K44.9 Diaphragmatic hernia without obstruction or gangrene; R13.10 Dysphagia, unspecified
CPT/HCPCS: 0202U; 36415; 51702; 64447; 70450; 71045; 72125; 73030; 73060; 73070; 73501; 73502; 74022; 80048; 80053; 81001; 82042; 82140; 82247; 84075; 84155; 84436; 84443; 84450; 84460; 84481; 85025; 85027; 85610; 85730; 87086; 88305; 88311; 92610; 93005; 93308; 94761; 96365; 96366; 96367; 96368; 96372; 96375; 96376; 97110; 97162; 99285; C1713; C1776; J0330; J0690; J1100; J1170; J1650; J2270; J2371; J2405; J2543; J2704; J2795; J3010